=== PATIENT | male | born 1955 | race Caucasian/White ===

== ENCOUNTER → 2017-01-07 | Outpatient (CLI) | payer OTHER ==
[~2017-01-07] VITALS: Ht 188 cm; Wt 63.2 kg
[~2017-01-07] MED LIST: ADULT LOW DOSE81 MG PO; ALLERGY10 M1 PO; ANTIBIOTIC; ASPIRIN325 PO; BENADRYL25 MG PO; COMPOUND CREAM; DEPO-TESTO100 MG/1 M IM; FENTANYL PATCH75 MCG TD; MEDROLDOSEPACK PO; METHADONE HCL 110 M1; METHADONE HCL 110 M1 GT; METHADONE HCL 110 M1 PO; METHADOSE10 M1 PO; MULTIVITAMINS; NEURONTIN 300300 M1 PO; OXYCODONE HCL 55 MG PO; OXYCODONE HCL5 M1 PO; OXYCODONE-ACET1 EACH PO; PAMELOR10 MG PO; PREDNISONE; PROCHAMBER1 EACH MC; PROPRANOLOL 1010 MG PO; PROZAC10 MG PO; RANITIDINE 150150 MG PO; ROXICODONE5 M1 PO; TOPROL XL25 MG PO; VALIUM10 MG PO; VALIUM5 MG PO
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
[2017-01-07 09:35] VITALS: BP 131/85
== END ==
LOC: PAIN 06:40
DX: M54.2 Cervicalgia (principal); G43.909 Migraine, unspecified, not intractable, without status migrainosus; M96.1 Postlaminectomy syndrome, not elsewhere classified; E83.118 Other hemochromatosis; F32.9 Major depressive disorder, single episode, unspecified; F41.9 Anxiety disorder, unspecified; I10 Essential (primary) hypertension; F17.210 Nicotine dependence, cigarettes, uncomplicated

== ENCOUNTER → 2017-02-08 | Outpatient (CLI) | payer OTHER ==
[~2017-02-08] VITALS: Ht 188 cm; Wt 64.9 kg
--- NOTE | ~2017-02-08 | HPC ---
[facility] [address] [place] [address] PAIN MANAGEMENT CONSULTATION Name: CARINA GALVAN Room #: REG SAMIR Anderson.#: [id number] Admission: 02/08/17 Attend Phys: Chandra Shultz DO Discharge: Date of : 59 Report #: [id number] THIS REPORT FOR: //name// CC: Tushar Shultz HISTORY OF PRESENT ILLNESS: The patient is a 61-year-old gentleman, being treated for symptomatic cervical radiculopathy, status post decompressive laminectomy, chronic pain syndrome, requiring complex medication management. He is typically the patient of Dr. Michael Zamorano, urine drug screen at last visit was positive for prescribed medication, as well as an alcohol metabolite. The patient was cautioned about drinking concurrently with robust opioid analgesics. Continues to smoke and is an everyday smoker, states down to 1/2 pack a day. Complains of pain primarily in neck, mid back, and headache. Rates his pain 8 on a 0-10 visual analog scale. PHYSICAL EXAMINATION: Actually fairly unremarkable initially, vital signs are stable. He is fairly cachectic, states he has no appetite. BMI is 18.4 kilograms per meter squared. When I attempted to do a cervical range of motion and upper extremity strength, he exhibited significant pain behaviors, started somewhat of tremors type jerking behavior with his head and neck. Ultimately range of motion is fairly full, well-healed anterior scar is on the neck, compatible with the ACDF. Upper extremity strength is 4/5 and symmetric. Reflexes for the biceps, triceps, and brachioradialis are generally symmetric. We reviewed the fact that opiate medications are being used to provide analgesia adequate to support activities of daily living, not attempting to achieve a specific pain score on the 0-10 Visual Analog Scale. The current opiate medications are providing sufficient analgesia to allow the patient to participate in activities of daily living. The patient is not exhibiting any aberrant behavior suggestive of drug diversion. The patient is not having any adverse reactions to medications. The patient is not suffering from daytime somnolence or mental acuity changes. The patient is managing opiate-induced constipation with appropriate dewb-jce-mtteadb agents and dietary considerations. The patient was counseled on concern for caution with operating a motor vehicle while using opiate medications. A physical exam was performed and the patient's functional status was evaluated. All patients with back pain were advised against the bed rest greater than 4 days and were advised to return to normal activities. Pain score assessment was noted and the treatment plan was reviewed with the patient. All current medications, both prescribed and OTC were reviewed and reconciled on the electronic medical record. Tobacco screening was accomplished and smoking cessation was advised when indicated. BMI was noted and diet/exercise modification was recommended for all patients following outside normal parameters. [address] [address] PAIN MANAGEMENT CONSULTATION Name: CARINA GALVAN Room #: REG CLDarnell Corrales#: [id number] Admission: 02/08/17 Attend Phys: Chandra Shultz DO Discharge: Date of : 59 Report #: [id number] I reviewed with the patient today their responsibilities to safeguard prescription medications, reviewed their responsibility to utilize medications only as prescribed by the physician. They are to seek and receive pain medications only from 1 physician group ( [facility]). They are to use 1 pharmacy and keep the clinic informed if they change pharmacies. Their responsibilities include making followup visits in a timely fashion and to avoid abrupt discontinuation of medication usage. Their responsibilities further include bringing their medications (bottles from the pharmacy with residual pills) to the visit for possible confirmation of pill counts and the patient understands it is their responsibility to submit to random drug screens to ensure both that the medications prescribed are present, and that no other controlled substances are present. All prescriptions provided today were generated electronically. ASSESSMENT: Chronic pain syndrome requiring complex medication management in a 61-year-old gentleman, status post multiple cervical surgeries, chronic pain syndrome requiring complex medication management. Continues to smoke, was counseled regarding the same. BMI is low, was counseled regarding protein supplementation. Chronic constipation, we talked about MiraLax, stool softeners, and fibrous diet with plenty of fluids. RECOMMENDATION: Ultimately, we elected to continue baseline medications unchanged, methadone 10 mg t.i.d. with Percocet 5/325 b.i.d. I have taken the liberty of writing for 3 months of current medication. I did suggest the patient that we will likely get a urine drug screen at next visit, and it should be negative for alcohol metabolites with his current opiate use, equating to roughly 90 mg of morphine via the methadone and 15 mg of morphine via the oxycodone for a total of 105 mEq of morphine daily. <ELECTRONICALLY SIGNED> By: Chandra Shultz DO 02/11/17 0749 [id number] Chandra Shultz DO /nt
[2017-02-08 08:39] VITALS: BP 133/81
== END | disposition home or self-care (01) ==
LOC: PAIN 02-04 07:32
DX: M54.12 Radiculopathy, cervical region (principal); G89.4 Chronic pain syndrome; F17.200 Nicotine dependence, unspecified, uncomplicated

== ENCOUNTER → 2017-05-06 | Outpatient (CLI) | payer OTHER ==
[~2017-05-06] VITALS: Ht 188 cm; Wt 64.0 kg
[2017-05-06 08:32] VITALS: BP 144/88
== END | disposition home or self-care (01) ==
LOC: PAIN 07:15
DX: G89.29 Other chronic pain (principal); Z98.890 Other specified postprocedural states; M54.2 Cervicalgia; F41.9 Anxiety disorder, unspecified; E83.119 Hemochromatosis, unspecified

== ENCOUNTER → 2017-07-22 | Outpatient (CLI) | payer OTHER ==
[~2017-07-22] VITALS: Ht 188 cm; Wt 66.1 kg
[~2017-07-22] MED LIST changes: -ADULT LOW DOSE81 MG PO; +ANESTROZOLE PO; +ASPIRIN EC325 M1 PO; +NEURONTIN100 MG PO
--- NOTE | ~2017-07-22 | HPC ---
[facility] [address] [address] [place] [address] PAIN MANAGEMENT CONSULTATION Name: CARINA GALVAN Room #: REG SAMIR Yuli.#: [id number] Admission: 07/22/17 Attend Phys: Michael Zamorano MD Discharge: Date of : 59 Report #: [id number] THIS REPORT FOR: //name// CC: Tushar Zamorano DATE OF SERVICE: 07/22/2017 Followup visit for chronic intractable pain. HISTORY OF PRESENT ILLNESS: The patient returns to the pain clinic today and his BMI has stabilized at 18.7 today. It was 18.1 at his last visit. He has had a GI workup and I have the results of his initial assessment, but not his EGD and colonoscopy. I have asked for those to be sent to our office by fax. He says that he has been feeling a little bit better, less shaky, but is still anorexic and has ongoing persistent chronic cervical and low back pain. 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 Today his pain is an 8/10. It is worse with activity. He has anxiety, occasionally getting upset and that seems to flare his physical pain as well. We had a talk today about the psychosocial components to pain. He is unable to work. He has on his previous buccal drug screen shown evidence of alcohol. We have talked about avoiding alcohol and he tells me that he only drinks an occasional beer in a social setting or when watching a ballgame. His stools have been loose and white recently. I want him talk to the GI specialist about this. MEDICATIONS: On the electronic medical record are reviewed in detail. For pain, he uses methadone 10-mg tablets b.i.d. down from previous 3 and he is on oxycodone 5/325 b.i.d. as well. Using a ratio of 4:1 for methadone to morphine, his MME (morphine milligram equivalency) is 90, right at the CDC guideline. He also takes testosterone, which is likely low due to his chronic opioid use and he is on multivitamins and metoprolol. PHYSICAL EXAMINATION: GENERAL: He looks a little better today. I think his color is better. His eyes do not look quite so gaunt. VITAL SIGNS: His blood pressure is 144/86, heart rate is 73, respirations are 18, and room air oxygen saturation is 98. His BMI is 18.7. [facility] [address] [place] [address] PAIN MANAGEMENT CONSULTATION Name: CARINA GALVAN Room #: REG CLI [facility]#: [id number] Admission: 07/22/17 Attend Phys: Michael Zamorano MD Discharge: Date of : 59 Report #: [id number] CHEST: Clear to auscultation. CARDIAC: Rhythm is audible and regular without appreciable murmur. ABDOMEN: Sensitive and tender. There is no palpable mass or organomegaly. EXTREMITIES: He has some diffuse hyperalgesia throughout the lower and upper extremities. IMPRESSION: 1. Chronic intractable pain related to spinal stenosis in the cervical region as well as lumbar radiculopathy. 2. Management of high-risk medications. 3. Recent anorexia with weight loss, etiology uncertain. 4. Management of high-risk medications under terms of an opioid agreement. PLAN: I renewed his medications. Reviewed his opioid agreement. Reviewed the CDC guidelines. Talked about the opioid crisis in the [place]. He understands the importance of safeguarding all medications and will be seen back in the clinic as needed in 3 months. This is in terms of our opioid agreement. By: [id number] Michael Zamorano MD /nt
[2017-07-22 10:51] VITALS: BP 144/86
== END | disposition home or self-care (01) ==
LOC: PAIN 06-24 12:51
DX: M48.02 Spinal stenosis, cervical region (principal); M54.16 Radiculopathy, lumbar region; R63.0 Anorexia; F41.8 Other specified anxiety disorders; Z98.890 Other specified postprocedural states; Z79.891 Long term (current) use of opiate analgesic; Z79.82 Long term (current) use of aspirin; Z79.899 Other long term (current) drug therapy

== ENCOUNTER → 2017-10-31 | Outpatient (CLI) | payer OTHER ==
[~2017-10-31] VITALS: Ht 188 cm; Wt 65.8 kg
[~2017-10-31] MED LIST changes: +ERGOCALCIF50000 UNIT PO; +GABAPENTIN 100100 MG PO; +LEXAPRO 10 MG T10 M1 PO; +VITAMIN E1000 UNI2 PO
--- NOTE | ~2017-10-31 | HPC ---
[facility] [address] [place] [address] PAIN MANAGEMENT CONSULTATION Name: CARINA GALVAN Room #: REG SAMIR Justin.#: [id number] Admission: 10/31/17 Attend Phys: Michael Zamorano MD Discharge: Date of : 59 Report #: [id number] THIS REPORT FOR: //name// CC: Tushar Zamorano Followup visit for chronic intractable pain, now with severe pain, right shoulder. The patient presents today in clinic with his . He has been on medications in our clinic under terms of written opioid agreement dating back to 2009. This will be his 8th year in our clinic. He has done well with his medications, has carefully managed them. He has had no misuse, abuse, overdose or other issues. We have had opioid rotation at a time or two and he is currently on methadone and oxycodone. His morphine mg equivalence is right at 90-95. We have, on repeated occasions, discussed the CDC guidelines. Today, his primary complaint is his right shoulder. He injured it with a couple of activities around the house. He scores it as an 8/9 and today, he has marked pain behaviors in the clinic, wincing and grimacing every time he moves the shoulder. Pain has been improved somewhat by medication. He is using an ice pack today in the clinic. The patient saw Dr. Venegas who suggested conservative treatment. He has had wonderful success sending patients to Dr. Blunt who specializes in shoulders and I would like for a second opinion from Dr. Blunt. We gave him the office number to make an appointment today. Medicare PQRS assessment shows that he has generalized osteoarthritis involving the shoulders, bilateral, and also complains of pain at times in his knees. He is instructed to remain active. His BMI is actually up a bit. We were concerned by his weight loss. He has been evaluated by Dr. Laughlin. His BMI is 18.6 up from 18.1. A rare in our clinic, we are encouraging his diet and he should take in more calories and particularly a healthy diet. OBJECTIVE: VITAL SIGNS: Blood pressure 135/94, heart rate 89. Pain intensity 8/10 today, mostly complaining of shoulder pain. He is not a fall risk. He has had some dizziness and needs to be cautious. He is not on blood thinners. He has a history of hypertension treated by Dr. Laughlin. His opioid agreement was first signed in 2009. We had him review it and sign it again in 05/2016. He has completed an opioid risk tool which is 4 which is a moderate risk. He has a functional assessment tool as well and goals have been established to remain active. He is a current everyday smoker and I have counseled him about that again today. [address] [address] PAIN MANAGEMENT CONSULTATION Name: CARINA GALVAN Room #: REG SAMIR Corrales#: [id number] Admission: 10/31/17 Attend Phys: Michael Zamorano MD Discharge: Date of : 59 Report #: [id number] His right shoulder was examined and he has marked pain with abduction. There is tenderness anteriorly in the joint and also laterally. He has pain over the supraspinatus muscle. He has marked reduction of mobility in the cervical spine due to previous surgery. He has a fusion and tenderness across the scar. IMPRESSION: 1. Chronic intractable back pain with multiple spinal surgeries. He has significant cervicalgia with limited range of motion due to cervical fusion causing occipital and migraine headaches. 2. Severe pain, right shoulder secondary to what sounds like a rotator cuff tear and injury. He has had an MRI, but I do not have the results. I have asked for them to be sent to our office. 3. Hemochromatosis. He undergoes phlebotomy with regularity. He has had to miss his last 2 sessions due to pain and illness. 4. Weight loss, which has now stabilized. 5. History of depression and anxiety. 6. Management of high risk medications under terms of written opioid agreement. PLAN: I renewed his pain, methadone 10 mg b.i.d., Percocet 5/325 two tablets daily for breakthrough pain for a total of 90 morphine equivalents per day. Total time with the patient 25 minutes. Followup visit is scheduled for 3 months. <ELECTRONICALLY SIGNED> By: Michael Zamorano MD 12/04/17 1640 [id number] Michael Zamorano MD /nt
[2017-10-31 11:01] VITALS: BP 135/94
== END ==
LOC: PAIN 06:50
DX: M43.22 Fusion of spine, cervical region (principal); M25.511 Pain in right shoulder; E83.119 Hemochromatosis, unspecified; R63.4 Abnormal weight loss; F41.9 Anxiety disorder, unspecified; F32.9 Major depressive disorder, single episode, unspecified; Z79.899 Other long term (current) drug therapy; Z98.890 Other specified postprocedural states

== ENCOUNTER → 2018-01-20 | Outpatient (CLI) | payer OTHER ==
[~2018-01-20] VITALS: Ht 188 cm; Wt 64.4 kg
[~2018-01-20] MED LIST changes: -ERGOCALCIF50000 UNIT PO; -LEXAPRO 10 MG T10 M1 PO; -VITAMIN E1000 UNI2 PO
--- NOTE | ~2018-01-20 | HPC ---
[facility] [address] [place] [address] PAIN MANAGEMENT CONSULTATION Name: CARINA GALVAN Room #: REG Darnell Yuli.#: [id number] Admission: 01/20/18 Attend Phys: Michael Zamorano MD Discharge: Date of : 59 Report #: [id number] THIS REPORT FOR: //name// CC: Tushar Zamorano DATE OF SERVICE: 01/20/2018 Followup visit for chronic cervicalgia. The patient returns to the pain clinic today in followup. He is here today for medication management. He remains on methadone 10 mg twice a day and oxycodone 5/325 b.i.d. His morphine milligram equivalent dose is 90. He continues to complain of pain in his neck and his shoulder. He has seen Dr. Mcmullen who has diagnosed osteoarthritis and rotator cuff injury. He continues to have shaking, which is worsening some. I have asked him to discuss this further with Dr. Laughlin. Although we have not discussed it before, I am concerned as I watch his gait that he may possibly have Parkinson's disease. I referred him to a neurologist as well. Review of PQRS shows that he has ongoing arthritis particularly in the shoulders and in his knees. He is instructed to do his best to remain active, daily exercise. BMI remains low at 18.2 and unchanged. He has an opioid agreement, which has been reviewed and recent drug screen performed one year ago. He is encouraged to remain active. Blood pressure is 153/93, heart rate 80 and respirations 22. IMPRESSION: 1. Chronic intractable pain. He has had eight previous back surgeries. 2. Management of high risk medication. 3. Osteoarthritis. 4. Ongoing tremor, possibly Parkinson's disease? 5. Hemochromatosis. 6. History of depression and anxiety. Follow up in the pain clinic in three months. Medications renewed. A 25-minute followup visit. By: [id number] iMchael Zamorano MD /nt
[2018-01-20 09:56] VITALS: BP 153/93
== END ==
LOC: PAIN 07:01
DX: G89.29 Other chronic pain (principal); M54.2 Cervicalgia; M19.90 Unspecified osteoarthritis, unspecified site; F32.9 Major depressive disorder, single episode, unspecified; F41.9 Anxiety disorder, unspecified; E83.119 Hemochromatosis, unspecified

== ENCOUNTER → 2018-04-28 | Outpatient (CLI) | payer OTHER ==
[~2018-04-28] VITALS: Ht 188 cm; Wt 63.7 kg
[~2018-04-28] MED LIST changes: +LEXAPRO 10 MG T10 M1 PO
--- NOTE | ~2018-04-28 | HPC ---
[facility] [address] [address] [place] [address] PAIN MANAGEMENT CONSULTATION Name: CARINA GALVAN Room #: REG SAMIR Justin.#: [id number] Admission: 04/28/18 Attend Phys: Michael Zamorano MD Discharge: Date of : 59 Report #: [id number] THIS REPORT FOR: //name// CC: Tushar Zamorano DATE OF SERVICE: 04/28/2018 Followup visit for chronic pain, cervicalgia, low back pain and osteoarthritis. The patient is here today with his . I follow him for chronic pain. He has had multiple spinal surgeries including extensive cervical laminectomy. He has chronic daily pain related to his spine and the multiple surgeries, and he also suffers from severe osteoarthritis of the right shoulder. I provided him with medications for a number of years under terms of written opioid agreement. He uses his medications carefully. His initial contract was signed on 07/03/2010. He has received multiple sessions of education regarding use of opioids cautiously and carefully and safeguarding of medications. He is grateful for the relief that he receives from his medication methadone with breakthrough oxycodone, which will be discussed further. He has over the years developed a worsening of her right arm coarse tremor. It is worse after activities. He does not remain idle at home and is oftentimes working on cars and yesterday spent a good portion of the afternoon using a weed whacker around his house. He is suffering the consequences of that activity with increase in pain today, which would be expected. He has seen Dr. José Antonio Blunt for the shoulder, he was diagnosed osteoarthritis and rotator cuff injury, but no surgery has been performed. He has symptoms that may be suggestive of Parkinson disease, although he is likely myelopathic with his previous neck surgery as well. He has some flattening of affect. He has lost some memory and reports that he is not as sharp as he used to be. He has a somewhat shuffling gait in addition to the tremor. I have spoken with Dr. Laughlin today, and we will send with Dr. Ridley in consultation. The possibility of Parkinson disease or a central degenerative condition is certainly in the differential. MEDICATIONS: Reviewed and reconciled. For pain, I provided him with methadone 10 mg twice a day and oxycodone 5/325 twice a day. This correlates to an MME of around 100 due to the high morphine equivalency of methadone, which is 4 to 1. He tolerates the medicine well without significant side effects and is grateful for the pain relief. PQRS is reviewed. He is not a fall risk, but he does have a shuffling gait. He has some loss of proprioception. He smokes a pack a day and was counseled. He [facility] [address] [place] [address] PAIN MANAGEMENT CONSULTATION Name: MANDYCARINA Room #: REG SAMIR Corrales#: [id number] Admission: 04/28/18 Attend Phys: Michael Zamorano MD Discharge: Date of : 59 Report #: [id number] drinks alcohol as well, usually. 1 beer per day, down from heavier consumption in the past. He has completed the risk assessment tool for his opioid use and is at low risk for addiction with a score of 1. Functional assessment tool shows that he manages his pain fairly well with a score of 38/70. He is treated for hypertension. PHYSICAL EXAMINATION: VITAL SIGNS: His blood pressure is 109/62, heart rate is 108, respirations 14. GENERAL: Affect is somewhat flat. His voice is hesitant. HEENT: Reveals pupils were round, reactive to light. EOMs are intact. Mucous membranes are moist. NECK: Rigid with limited range of motion in all planes. There is a scar in the posterior cervical spine from previous laminectomy. CHEST: Clear. CARDIAC: Rhythm was regular and rapid. ABDOMEN: Soft. Scars in the back are noted from previous surgery. EXTREMITIES: Reveal tremor of the right upper extremity. Left is fairly stable. Gait is somewhat shuffling. IMPRESSION: 1. Chronic intractable pain with multiple spinal surgeries. 2. Management of high risk medication. 3. Osteoarthritis, particularly right shoulder. 4. Ongoing tremor. 5. History of hemochromatosis and he continues to receive phlebotomies once or twice a month. 6. History of depression and anxiety. PLAN: I will renew his pain medications, which are so helpful in maintaining for daily function. Safeguarding medications discussed. No side effects need to be addressed at this time. Follow up with Dr. Laughlin within the next 1-2 months, and I have suggested that he talk to Dr. Laughlin about seeing Dr. Ridley. <ELECTRONICALLY SIGNED> By: Michael Zamorano MD 04/30/18 1622 [id number] Michael Zamorano MD /nt
[2018-04-28 10:01] VITALS: BP 109/62
== END ==
LOC: PAIN 06:23
DX: M19.011 Primary osteoarthritis, right shoulder (principal); G89.4 Chronic pain syndrome; M54.5 Low back pain; M54.2 Cervicalgia

== ENCOUNTER → 2018-07-21 | Outpatient (CLI) | payer OTHER ==
[~2018-07-21] VITALS: Ht 188 cm; Wt 67.0 kg
[~2018-07-21] MED LIST changes: +ERGOCALCIF50000 UNIT PO; +VITAMIN E1000 UNI2 PO
[2018-07-21 09:01] VITALS: BP 132/83
== END ==
LOC: PAIN 07:04
DX: M54.5 Low back pain (principal); M54.2 Cervicalgia; G89.29 Other chronic pain; M79.601 Pain in right arm; Z79.899 Other long term (current) drug therapy

== ENCOUNTER → 2018-09-22 | Outpatient (CLI) | payer OTHER ==
[~2018-09-22] VITALS: Ht 188 cm; Wt 69.0 kg
[~2018-09-22] MED LIST changes: +METOPROLOL TART25 MG PO
--- NOTE | ~2018-09-22 | HPC ---
[facility] [address] [place] [address] PAIN MANAGEMENT CONSULTATION Name: CARINA GALVAN Room #: REG [facility].#: [id number] Admission: 09/22/18 Attend Phys: Michael Zamorano MD Discharge: Date of : 59 Report #: [id number] THIS REPORT FOR: //name// CC: Tushar Laughlin DO Michael Zamorano DATE OF SERVICE: 09/22/2018 Followup visit for chronic pain. The patient returns to pain clinic today and reports that he is doing poorly. He describes his pain as increasing in severity and severe at a level of 9/10. He is lightheaded at times and dizzy. His weight remains low and his BMI under 20. I should note that he has gained a small amount of weight since previously seen, so his weight loss has not continued. He reports to me that his pain is severe every day, worse generally when he first gets up. He is stiff and tight and it requires a period of time for him to loosen. He has pain in multiple locations including his neck where he has had an extensive cervical laminectomy for decompression, pain that radiates into his right arm along with a fine tremor that he has had for some time. He has pain across his low back and stiffness and pain in both legs. He has spasticity related I believe to spinal cord injuries and myelopathy. I have been concerned that Parkinson's disease or another neurologic disorder is in his differential diagnosis. He has the fine tremor of the hand. He has some flattening of his affect. He has a shuffling spastic gait. I have asked repeatedly for a neurologic consultation, although he tells me that he is not sure that he has done that. I had discussed with Dr. Laughlin a referral and I thought that it had occurred with Dr. Laughlin. No records were sent to my office. All medications are currently reviewed and reconciled. He is on an opioid agreement. He reports without medication, he would not be able to function or get out of bed. The opioids do provide substantial pain relief for him despite his high pain score. Without them, he feels he would be immobile even for simple daily activities of living. All medications were reviewed and reconciled. He has been given testosterone replacement due to low levels, which may in part be contributed to by his use of opioid medications: He is on the antidepressant, Lexapro, metoprolol, vitamin E. PQRS REVIEW AND PHYSICAL EXAMINATION: He has diffuse generalized osteoarthritis involving shoulders, hips, knees and joints of his hands. His BMI 19.5, [address] [address] PAIN MANAGEMENT CONSULTATION Name: CARINA GALVAN Room #: REG [facility]#: [id number] Admission: 09/22/18 Attend Phys: Michael Zamorano MD Discharge: Date of : 59 Report #: [id number] actually an increase. Dietary issues discussed. Vital signs: Blood pressure 135/85 and heart rate of 84. We did check him for orthostatic changes and they were fairly dramatic. Supine blood pressure was 179/85, heart rate 76, standing blood pressure dropped over 50 points to 123/81, heart rate 83 and he was symptomatic. He scores his pain intensity is a 9. His gait is markedly stiff, shuffling and spastic. He is a fall risk. He is on no blood thinners and is on an opioid agreement signed last in 2015. He is considered low risk by the opioid risk tool. Prescription drug monitoring program information reviewed with the [facility] and there are no unexpected entries. IMPRESSION AND PLAN: 1. Chronic intractable spinal pain, cervicalgia, post-laminectomy syndrome. Osteoarthritis. Evidence of myelopathy and spastic gait. 2. Movement disorder, possibly Parkinson's disease? I would like him to see a neurologist and discuss further with Dr. Laughlin. 3. Management of high-risk medications under terms of written opioid agreement. 4. Discussed the importance of safeguarding all medications, which he will do. His medications were renewed under terms of our written agreement. I will see him back in the pain clinic in 2 months. No injections are indicated. By: [id number] Michael Zamorano MD /nt
[2018-09-22 09:01] VITALS: BP 135/85
[2018-09-22 09:23] VITALS: BP 179/85
[2018-09-22 09:24] VITALS: BP 123/81
== END ==
LOC: PAIN 00:33
DX: M54.2 Cervicalgia (principal); G89.4 Chronic pain syndrome; M19.90 Unspecified osteoarthritis, unspecified site; M96.1 Postlaminectomy syndrome, not elsewhere classified; G25.9 Extrapyramidal and movement disorder, unspecified; Z79.899 Other long term (current) drug therapy; Z79.891 Long term (current) use of opiate analgesic

== ENCOUNTER → 2018-11-20 | Outpatient (CLI) | payer OTHER ==
[~2018-11-20] VITALS: Ht 188 cm; Wt 71.7 kg
[2018-11-20 10:55] VITALS: BP 157/96
--- NOTE | 2018-11-20 11:02 | NUR ---
Pain Clinic Assessment: 1. History of Osteoarthritis: GENERALIZED History of Rheumatoid Arthritis: Not Applicable 2. Height: 6 ft. 2 in. 188.0 cm. Weight: 158.0 lb. oz. 71.668 kg. Patient's BMI: 20.3 3. Vital Signs: BP: 157/96 Pulse: 76 Resp: 16 Temp: 02 Sat: 96 ECG Mon: 4. Pain Intensity: 10 5. Fall Risk: Dizziness: N Needs help standing or walking: N Fallen in the last 3 months: Y Fall risk comments: 6. Patient on Blood Thinner: None 7. History of Hypertension: Y 8. Opioid Therapy greater than 6 weeks: Y Opiate Contract Signed: 05/21/16 9. Risk Assessment Tool Provided: 1-low risk 10. Functional Assessment Tool: 11. Recreational Drug Use: Never Drug Type: Tobacco Use: Current Every Day Smoker Tobacco Type: Amount or Packs/day: How Many Years: Alcohol Use: Yes Frequency: Daily Quant: 1 BEER
--- NOTE | 2018-11-21 08:27 | HPC ---
[facility] [place] [address] PAIN MANAGEMENT CONSULTATION Name: CARINA GALVAN Room #: REG [facility]#: [id number] Admission: 11/20/18 Attend Phys: Ann Nazario Discharge: Date of : 59 Report #: [id number] THIS REPORT FOR: //name// CC: Ann Laughlin DATE OF SERVICE: 11/20/2018 CHIEF COMPLAINT: Chronic pain, recent fall. HISTORY OF PRESENT ILLNESS: The patient returns to the pain clinic today for refill of his medications, but he tells us that he fell about 5 days ago from the ice. He tells us that he remembers falling, does not remember actually hitting the ground or what he hit during his fall, but he remembers that he woke up briefly after the fall with his dog beside him. He had a loss of consciousness. He tells us today that his right side of his face from his nose towards his cheek are numb. His right arm has increased his pain and numbness in his hand. He tells me that he hit his head, hand, chest. He had sore areas on his head and his neck and his walk is not his normal gait today. He rates his pain score as 10/10. He did not go to the Emergency Room. He stayed at home and this is the first time he has seen anyone since his fall. He also complains of low back pain and some pain in his left forearm. ALLERGIES: CHOCOLATE, DARVOCET, PENICILLIN, MORPHINE, MILK and GABAPENTIN. CURRENT LIST OF MEDICATIONS: Oxycodone 5/325 b.i.d., methadone 10 mg tablets b.i.d., metoprolol 25 mg daily, vitamin E 1000 units daily, Drisdol weekly, Lexapro 20 mg daily, Toprol-XL 25 mg daily, aspirin 325 mg daily, testosterone injections every 2 weeks and a multivitamin. PQRS: 1. The patient has osteoarthritis in his neck and back and generalized diffuse osteoarthritis also in his hips, shoulders, knees and other joints of his hands. He denies rheumatoid arthritis. 2. Height is 6 feet 2 inches, weight is 158. BMI is 20. This is an increase by 6 pounds since his last visit. 3. Vital signs: 157/96, pulse is 76, respirations 16, oxygen sat is 96. 4. Pain score is 10/10. 5. Fall risk. Denies dizziness. Does not need help walking or standing. He has not fallen in the last 3 months. 6. He takes a full baby aspirin every day. Does have a history of hypertension. 7. Opioid therapy greater than 6 weeks, therefore, an opioid pain contract is on the chart. 8. Risk assessment tool is low. Functional assessment 38/70. 9. Recreational drug use he denies. He is [place] current [place] [address] PAIN MANAGEMENT CONSULTATION Name: CARINA GALVAN Room #: REG [facility]#: [id number] Admission: 11/20/18 Attend Phys: Ann Nazario Discharge: Date of : 59 Report #: [id number] every day and he occasionally drinks a beer daily. We did check the prescription monitoring system. The patient is filling his medications appropriately in a timely fashion. He tells me he safeguards his medications and there is a drug screen on the chart. PHYSICAL EXAMINATION: GENERAL: This is a well-developed, anorexic 63-year-old gentleman, appears his stated age. He is alert and orientated. His speech is fluent. HEENT: Normocephalic, atraumatic. Extraocular eye muscles are intact. Mucous membranes are moist. He does have some scratches on his chin and the side of his right face due to his recent fall. NECK: Reveals limited range of motion in all planes. There is a scar in the anterior cervical spine and posterior spine from previous laminectomies. He does have abrasion on his back of his neck from his recent fall. MUSCULOSKELETAL: The patient has abrasions on his bilateral elbows from his recent fall, some bruising noted on his left arm. Strength is diminished 3/5 on his left arm and 4/5 on his right arm. Lower extremity muscle strength is diminished 3/5 on his left leg and 4/5 on his right leg. The patient has shuffling antalgic gait, numbness and tingling noted on the left arm that involves his entire hand. IMPRESSION: 1. Chronic intractable pain with multiple spinal surgeries. 2. Management of high risk medication. 3. Osteoarthritis, generalized. 4. Ongoing tremors. 5. History of hemochromatosis. Continues to have phlebotomy monthly. 6. History of depression and anxiety. 7. Multiple contusions and loss of consciousness briefly related to recent fall. We reviewed the fact that opiate medications are being used to provide analgesia adequate to support activities of daily living, not attempting to achieve a specific pain score on the 0-10 Visual Analog Scale. The current opiate medications are providing sufficient analgesia to allow the patient to participate in activities of daily living. The patient is not exhibiting any aberrant behavior suggestive of drug diversion. The patient is not having any adverse reactions to medications. The patient is not suffering from daytime somnolence or mental acuity changes. The patient is managing opiate-induced constipation with appropriate qacf-uzt-xmmhxcu agents and dietary considerations. The patient was counseled on concern for caution with operating a motor vehicle while using opiate medications. A physical exam was performed and the patient's functional status was evaluated. All patients with back pain were advised against the bed rest greater than 4 [facility] [address] [place] [address] PAIN MANAGEMENT CONSULTATION Name: CARINA GALVAN Room #: REG [facility]..#: [id number] Admission: 11/20/18 Attend Phys: Ann Nazario Discharge: Date of : 59 Report #: [id number] days and were advised to return to normal activities. Pain score assessment was noted and the treatment plan was reviewed with the patient. All current medications, both prescribed and OTC were reviewed and reconciled on the electronic medical record. Tobacco screening was accomplished and smoking cessation was advised when indicated. BMI was noted and diet/exercise modification was recommended for all patients following outside normal parameters. I reviewed with the patient today their responsibilities to safeguard prescription medications, reviewed their responsibility to utilize medications only as prescribed by the physician. They are to seek and receive pain medications only from 1 physician group ([facility]). They are to use 1 pharmacy and keep the clinic informed if they change pharmacies. Their responsibilities include making followup visits in a timely fashion and to avoid abrupt discontinuation of medication usage. Their responsibilities further include bringing their medications (bottles from the pharmacy with residual pills) to the visit for possible confirmation of pill counts and the patient understands it is their responsibility to submit to random drug screens to ensure both that the medications prescribed are present, and that no other controlled substances are present. All prescriptions provided today were generated electronically. PLAN: 1. Due to the patient's objective and subjective findings on his physical exam today, I think it is relevant to have an x-ray of his head CT and his neck CT done today to rule out any bleeds that may have occurred from his fall or any further damage to his neck since he has had multiple surgeries with significant hardware placed. Due to his signs and symptoms of numbness and tingling in his arm and his gait has worsened, we will order those today and agreement with Dr. Michael Zamorano who actually saw the patient too and examined him. The patient is agreeable with this. He understands that the patient has gone to the Emergency Room sooner to be checked since he did hit his head. 2. Results from CAT scan of his head showed mild atrophy and microvascular changes, no acute hemorrhage noted and his cervical spine showed no cervical fracture detected, just postoperative degenerative changes from his multiple surgeries. He informed the patient of these, but if his symptoms continue to get worse he is instructed to go to the Emergency Room. The patient verbalizes understanding. 3. Scripts given today for methadone 10 mg 3 times b.i.d. to be released today in 4 weeks and oxycodone 5/325, #60 to be released today in 4 weeks. 4. The patient will be seen in followup for medication management in 2 months unless other symptoms arise. 5. The patient did tell me that he did follow up with Dr. Sanchez, a neurologist for his Parkinson-like tremors. Dr. Sanchez did not believe that he has Parkinson's. He did order the patient to start taking some vitamins that the patient has started and will follow up with him in the next month. [facility] [address] [place] [address] PAIN MANAGEMENT CONSULTATION Name: CARINA GALVAN Room #: REG [facility]#: [id number] Admission: 11/20/18 Attend Phys: Ann Nazario Discharge: Date of : 59 Report #: [id number] The patient was seen in collaboration with Dr. Michael Zamorano today and Dr Zamorano saw pt today. <ELECTRONICALLY SIGNED> By: Ann Nazario 11/21/18 [id number] Ann Nazario /nt
== END ==
LOC: PAIN 07:03
DX: S06.0X9A Concussion with loss of consciousness of unspecified duration, initial encounter (principal); G31.89 Other specified degenerative diseases of nervous system; M43.22 Fusion of spine, cervical region; M19.90 Unspecified osteoarthritis, unspecified site; F41.9 Anxiety disorder, unspecified; Z91.018 Allergy to other foods; Z88.8 Allergy status to other drugs, medicaments and biological substances; Z88.5 Allergy status to narcotic agent; Z88.0 Allergy status to penicillin; Z79.899 Other long term (current) drug therapy; W00.0XXA Fall on same level due to ice and snow, initial encounter; Y93.89 Activity, other specified; Y92.89 Other specified places as the place of occurrence of the external cause; Y99.8 Other external cause status

== ENCOUNTER → 2019-01-19 | Outpatient (CLI) | payer OTHER ==
[~2019-01-19] VITALS: Ht 188 cm; Wt 72.2 kg
[~2019-01-19] MED LIST changes: +LIORESAL 10 MG10 MG PO
[2019-01-19 09:15] VITALS: BP 159/99
--- NOTE | 2019-01-19 09:29 | NUR ---
Pain Clinic Assessment: 1. History of Osteoarthritis: GENERALIZED History of Rheumatoid Arthritis: Not Applicable 2. Height: 6 ft. 2 in. 188.0 cm. Weight: 159.2 lb. oz. 72.213 kg. Patient's BMI: 20.4 3. Vital Signs: BP: 159/99 Pulse: 71 Resp: 14 Temp: 02 Sat: 98 ECG Mon: 4. Pain Intensity: 9 5. Fall Risk: Dizziness: Y Needs help standing or walking: N Fallen in the last 3 months: Y Fall risk comments: 6. Patient on Blood Thinner: None 7. History of Hypertension: Y 8. Opioid Therapy greater than 6 weeks: Y Opiate Contract Signed: 05/21/16 9. Risk Assessment Tool Provided: 1-low risk 10. Functional Assessment Tool: 11. Recreational Drug Use: Never Drug Type: Tobacco Use: Current Every Day Smoker Tobacco Type: Cigarettes Amount or Packs/day: 3/4 How Many Years: 40 Alcohol Use: Yes Frequency: Daily Quant: 1/beer/day
--- NOTE | 2019-01-20 09:51 | HPC ---
[facility] [address] [address] PAIN MANAGEMENT CONSULTATION Name: CARINA GALVAN Room #: REG [facility]#: [id number] Admission: 01/19/19 ������������������ Attend Phys: Ann Nazario Discharge: ������������������ Date of : 59 Report #: [id number] THIS REPORT FOR: //name// CC: Ann Laughlin DATE OF SERVICE: 01/19/2019 CHIEF COMPLAINT: Chronic pain, cervical radiculopathy. HISTORY OF PRESENT ILLNESS: The patient returns to the pain clinic today for refill of his medication. He tells me that he is doing much better since his fall in November. He tells me that today he has right arm pain and right leg pain. He tells me that his leg is tingly and itchy feeling as well as his arm. He tells me there has been ongoing neck pain and rating it 9/10. He tells me it seems to be getting worse in his right arm. He has pain in his right forearm. He is also having spasms. He said that they come on quite quickly and will last for a while and was wondering if he was able to get some kind of medicine for a muscle relaxant. He said he has not had a muscle relaxant for years and unsure of what would be helpful. He just does not want to be sleepy from the medicine if that is possible. He tells me that he feels like he is less shaky and less tremorous since some medicines that a neurologist had put him on. He has been taking them for about 2 months now and feels that they have been very helpful. He denies any constipation and the patient has actually gained a few pounds since the last time we saw him. He is about at 160, which is close to his normal weight, the patient feels like. ALLERGIES: CHOCOLATE, DARVOCET, PENICILLIN, MORPHINE, MILK AND GABAPENTIN. MEDICATIONS: Oxycodone 5/325 b.i.d., methadone 10 mg b.i.d., vitamin E, Drisdol, Lexapro, metoprolol, aspirin, Depo testosterone, multivitamin. PQRS: 1. He has osteoarthritis in his neck and back as well as his joints of hips, shoulders, knees. He denies any rheumatoid arthritis. 2. Height is 6 feet 2 inches, weight is 159, BMI is 20. 3. Vital Signs: Blood pressure 159/99, pulse is 71, respirations 14, oxygen sat is 98. 4. Pain score is 9/10. 5. Complains of slight dizziness, does not need help walking or standing; has fallen in the last 3 months, but not since last visit. 6. The patient is not on any blood thinners. He does have medicine for hypertension. 7. Opioid therapy is greater than 6 weeks; therefore, an opioid signed contract is on the chart. 8. His risk assessment is low. His functional assessment 38/70. [place] [address] PAIN MANAGEMENT CONSULTATION Name: CARINA GALVAN Room #: REG [facility]#: [id number] Admission: 01/19/19 ������������������ Attend Phys: Ann Nazario Discharge: ������������������ Date of : 59 Report #: [id number] 9. He denies any recreational drug use. He does smoke about 3/4 of a pack a day of cigarettes and he does occasionally have a beer each day. 10. We did check the prescription monitoring system. The patient is filling it appropriately with his medication is due to be filled today. There is a recent drug screen on the chart. We will check one in his next medication visit. PHYSICAL EXAMINATION: GENERAL: This is a well-developed, anorexic 63-year-old gentleman who appears his stated age. He is alert and orientated. HEENT: Normocephalic, atraumatic. Extraocular eye muscles are intact. Mucous membranes are moist. NECK: Reveals limited range of motion in all planes. He has anterior cervical spine scar and a posterior spine scar from previous laminectomies. He complains of pain in his neck today that radiates into his right arm. MUSCULOSKELETAL: The patient complains of right arm tingly. He has diminished strength in his right arm judging 4/5 in muscle strength on his right compared to his left 5/5. The patient also does complain of some low back pain and right leg tingly that radiates into his calf. IMPRESSION: 1. Chronic intractable pain with multiple spinal surgeries. 2. Management of high risk medications: 3. Osteoarthritis, generalized multiple joints. 4. Ongoing tremors. 5. History of hemochromatosis requires phlebotomy monthly. 6. History of depression and anxiety. 7. Cervical radiculopathy. 8. Lumbar radiculopathy. We reviewed the fact that opiate medications are being used to provide analgesia adequate to support activities of daily living, not attempting to achieve a specific pain score on the 0-10 Visual Analog Scale. The current opiate medications are providing sufficient analgesia to allow the patient to participate in activities of daily living. The patient is not exhibiting any aberrant behavior suggestive of drug diversion. The patient is not having any adverse reactions to medications. The patient is not suffering from daytime somnolence or mental acuity changes. The patient is managing opiate-induced constipation with appropriate yagd-vyq-quylpod agents and dietary considerations. The patient was counseled on concern for caution with operating a motor vehicle while using opiate medications. A physical exam was performed and the patient's functional status was evaluated. All patients with back pain were advised against the bed rest greater than 4 days and were advised to return to normal activities. Pain score assessment was noted and the treatment plan was reviewed with the patient. All current medications, both prescribed and OTC were reviewed and reconciled on the [facility] [address] [place] [address] PAIN MANAGEMENT CONSULTATION Name: CARINA GALVAN Room #: REG [facility]#: [id number] Admission: 01/19/19 ������������������ Attend Phys: Ann Nazario Discharge: ������������������ Date of : 59 Report #: [id number] electronic medical record. Tobacco screening was accomplished and smoking cessation was advised when indicated. BMI was noted and diet/exercise modification was recommended for all patients following outside normal parameters. I reviewed with the patient today their responsibilities to safeguard prescription medications, reviewed their responsibility to utilize medications only as prescribed by the physician. They are to seek and receive pain medications only from 1 physician group ( [facility]). They are to use 1 pharmacy and keep the clinic informed if they change pharmacies. Their responsibilities include making followup visits in a timely fashion and to avoid abrupt discontinuation of medication usage. Their responsibilities further include bringing their medications (bottles from the pharmacy with residual pills) to the visit for possible confirmation of pill counts and the patient understands it is their responsibility to submit to random drug screens to ensure both that the medications prescribed are present, and that no other controlled substances are present. All prescriptions provided today were generated electronically. PLAN: 1. We discussed treatment options with the patient today. The patient was wondering if a muscle relaxant might be helpful for him. He does not want to have something that causes sleepiness. We will do a trial of baclofen 10 mg tablets 1 b.i.d., #30 pills were given for a trial to see if this is helpful with his muscle spasms regarding his neck and back. 2. Scripts given today for his methadone 10 mg b.i.d. #60 and oxycodone 5/325 #60 medicines for today and 4-week releases. This places the patient morphine mEq under 90 at 75. Therefore, he will be seen for medications again in 2 months. 3. We discussed at length his cervical radiculopathy. He has pain and numbness radiating down his right arm. He has had multiple neck surgeries and fusions. He is fused from C4-C7. I did discuss with Dr. Zamorano briefly if he thinks an epidural may be helpful. Dr. Zamorano thought that might be beneficial. He would need to see the patient and examine him and determine if he is able to perform an epidural due to his previous fusions. The patient has significant hardware in there. We do not have a recent MRI, the last one was dated from 2007, but we have his CAT scan from his recent fall of his neck. We are able to seek authorization for injections on the same day as his appointment. The patient is agreeable with this plan of care since his right arm pain and numbness continues to increase. 4. The patient seen in collaboration today with Dr. Michael Zamorano. ��������������������������������������������� <ELECTRONICALLY SIGNED> ���������������������������������������� By: Ann Nazario ��������������������������������������������� 01/20/19 [id number] Ann Nazario /smitha
== END ==
LOC: PAIN 06:55
DX: M54.12 Radiculopathy, cervical region (principal); M54.16 Radiculopathy, lumbar region; G89.29 Other chronic pain; M19.90 Unspecified osteoarthritis, unspecified site; F41.9 Anxiety disorder, unspecified; F32.9 Major depressive disorder, single episode, unspecified; Z79.899 Other long term (current) drug therapy; Z88.8 Allergy status to other drugs, medicaments and biological substances; Z88.0 Allergy status to penicillin; Z88.5 Allergy status to narcotic agent

== ENCOUNTER → 2019-02-09 | Outpatient (CLI) | payer OTHER ==
[~2019-02-09] VITALS: Ht 188 cm; Wt 72.8 kg
--- NOTE | ~2019-02-09 | HPC ---
[facility] [address] [place] [address] PAIN MANAGEMENT CONSULTATION Name: CARINA GALVAN Room #: REG [facility].#: [id number] Admission: 02/09/19 ������������������ Attend Phys: Michael Zamorano MD Discharge: ������������������ Date of : 59 Report #: [id number] THIS REPORT FOR: //name// CC: Tushar Zamorano DATE OF SERVICE: 02/09/2019 CHIEF COMPLAINT: Followup visit for chronic cervicalgia with radiculopathy. The patient is here today in followup. He is on medication management for chronic intractable cervical pain. He has had an extensive lower anterior cervical diskectomy and fusion as well as a posterior laminectomy at his C2-C3 level. Surprised and disappointed to note that the radiologist, Dr. Nicole, did not even note his posterior laminectomy in her report. I have reviewed the x-rays. There are no fractures, however, the vertebral heights are maintained which was one of the issues we had looked for after his most recent episode of pain. I am not sure we will get adequate pictures, but because of his hyperreflexia, I have decided that we will go ahead and order an MRI of the cervical spine and I want him to see Dr. Kelly. Today, he scores his pain as an 8/10. Continues to have a tremor in the right arm. Pain radiates into his right arm and right shoulder in a radicular distribution consistent with C6-C7 as well as some C7-T1. He is having difficulty with driving a car and other day-to-day activities. He is grateful for his pain medication, which allows him to be more functional throughout the day and he denies significant side effects. Constipation has been a problem in the past, but has been managing it with softeners and laxatives. All medications reviewed and reconciled. He is on an opioid agreement, receives methadone 10 mg twice a day and oxycodone 5/325 also twice a day for breakthrough pain. He uses baclofen for muscle spasm and spasticity, takes Lexapro for depression and anxiety. All other medications are confirmed. He has metoprolol for hypertension and is not on a blood thinner. He continues to smoke 3/4 of a pack a day and was counseled. He was given information to continue to focus on stopping that dangerous habit. He drinks alcohol, but has markedly limited his consumption to 1 beer or alcoholic beverage per day. He continues to do some work around the house including mowing the yard and enjoys working on a truck, but finds it more and more difficult. He often awakens at night due to his pain and has difficulty staying asleep, mostly pain related not due to rumination. [facility] [address] [place] [address] PAIN MANAGEMENT CONSULTATION Name: ATTILAKIMBERLYCARINA Room #: REG SAMIR Corrales#: [id number] Admission: 02/09/19 ������������������ Attend Phys: Michael Zamorano MD Discharge: ������������������ Date of : 59 Report #: [id number] He has completed an opioid risk tool and has scored 1, which is considered low risk. He has signed an opioid agreement and is considered to be at low risk for issues. We have followed his use of medication on the prescription drug monitoring program and there are no unexpected entries. IM is only provided. PHYSICAL EXAMINATION: GENERAL: He is a pleasant gentleman. He moves rigidly and with very stiff movements. He cannot turn his neck [id number]. VITAL SIGNS: His blood pressure is 146/93, heart rate 71, respirations 20. BMI is 20.6. CHEST: Clear. CARDIAC: Rhythm is regular. 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 Some biceps weakness also noted on the right in comparison to the left. Sensation is diminished throughout the shoulder in the C6-C7 distribution and he has some numbness broadly throughout the right hand. Deep tendon reflexes are brisk at biceps, triceps and brachioradialis. He is hyperreflexic, bordering on clonus in lower extremities. IMPRESSION: 1. Chronic cervicalgia with radiculopathy. He is hyperreflexic and there is some concern about spinal cord compression. 2. History of persistent ongoing tremor, undiagnosed. 3. Osteoarthritis, multiple joints including hips, knees and shoulders. 4. Hemochromatosis requiring phlebotomy. 5. History of depression and anxiety. 6. History of lumbar radiculopathy. RECOMMENDATION: I would like to consider an epidural injection, but before I would do so, I am going to get an MRI. I have also referred him to Dr. Kelly after the MRI and wanted to evaluate the MRI to make sure that he is not becoming tighter with more significant risk of myelopathy. Followup visit planned after the MRI. Orders provided. ��������������������������������������������� ���������������������������������������� By: ��������������������������������������������� 1212 [id number] Michael Zamorano MD /nt
[2019-02-09 09:40] VITALS: BP 146/93
--- NOTE | 2019-02-09 09:50 | NUR ---
Pain Clinic Assessment: 1. History of Osteoarthritis: GENERALIZED History of Rheumatoid Arthritis: Not Applicable 2. Height: 6 ft. 2 in. 188.0 cm. Weight: 160.6 lb. oz. 72.848 kg. Patient's BMI: 20.6 3. Vital Signs: BP: 146/93 Pulse: 71 Resp: 20 Temp: 02 Sat: 98 ECG Mon: 4. Pain Intensity: 8 5. Fall Risk: Dizziness: Y Needs help standing or walking: N Fallen in the last 3 months: N Fall risk comments: 6. Patient on Blood Thinner: None 7. History of Hypertension: Y 8. Opioid Therapy greater than 6 weeks: Y Opiate Contract Signed: 05/21/16 9. Risk Assessment Tool Provided: 1-low risk 10. Functional Assessment Tool: 11. Recreational Drug Use: Never Drug Type: Tobacco Use: Current Every Day Smoker Tobacco Type: Cigarettes Amount or Packs/day: 3/4 PACK How Many Years: Alcohol Use: Yes Frequency: Daily Quant: 1
== END ==
LOC: PAIN 06:52
DX: G89.29 Other chronic pain (principal); M54.12 Radiculopathy, cervical region; M54.16 Radiculopathy, lumbar region; M17.0 Bilateral primary osteoarthritis of knee; M16.0 Bilateral primary osteoarthritis of hip; M19.011 Primary osteoarthritis, right shoulder; M19.012 Primary osteoarthritis, left shoulder; F32.9 Major depressive disorder, single episode, unspecified; F41.9 Anxiety disorder, unspecified; F17.210 Nicotine dependence, cigarettes, uncomplicated; Z79.891 Long term (current) use of opiate analgesic; Z72.89 Other problems related to lifestyle

== ENCOUNTER → 2019-02-13 | Outpatient (CLI) | payer OTHER | LOC: MRI 10:23 | DX: M50.11 Cervical disc disorder with radiculopathy, high cervical region (principal); Z98.890 Other specified postprocedural states ==

== ENCOUNTER → 2019-03-05 | Outpatient (CLI) | payer OTHER ==
[~2019-03-05] VITALS: Ht 188 cm; Wt 72.4 kg
[2019-03-05 10:50] VITALS: BP 161/94
--- NOTE | 2019-03-05 11:10 | NUR ---
Pain Clinic Assessment: 1. History of Osteoarthritis: GENERALIZED History of Rheumatoid Arthritis: Not Applicable 2. Height: 6 ft. 2 in. 188.0 cm. Weight: 159.6 lb. oz. 72.394 kg. Patient's BMI: 20.5 3. Vital Signs: BP: 161/94 Pulse: 70 Resp: 16 Temp: 02 Sat: 97 ECG Mon: 4. Pain Intensity: 10 5. Fall Risk: Dizziness: Y Needs help standing or walking: N Fallen in the last 3 months: N Fall risk comments: 6. Patient on Blood Thinner: None 7. History of Hypertension: Y 8. Opioid Therapy greater than 6 weeks: Y Opiate Contract Signed: 05/21/16 9. Risk Assessment Tool Provided: 1-low risk 10. Functional Assessment Tool: 11. Recreational Drug Use: Never Drug Type: Tobacco Use: Current Every Day Smoker Tobacco Type: Cigarettes Amount or Packs/day: 3/4 PACK How Many Years: 48 Alcohol Use: Yes Frequency: Daily Quant: 6
--- NOTE | 2019-03-09 18:13 | HPC ---
[facility] [address] [place] [address] PAIN MANAGEMENT CONSULTATION Name: CARINA GALVAN Room #: REG Darnell Justin.#: [id number] Admission: 03/05/19 ������������������ Attend Phys: Michael Zamorano MD Discharge: ������������������ Date of : 59 Report #: [id number] THIS REPORT FOR: //name// CC: Tushar Laughlin DO Michael Zamorano DATE OF SERVICE: 03/05/2019 Followup visit to review MRI of cervical spine for severe cervicalgia with radiculopathy. The patient returns to pain clinic today. He continues to complain of pain on a daily basis at a 10/10. He also has a significant movement disorder. He twitches throughout his visit today and has ongoing tremor in his left upper extremity. We provide him with medication which allows him some benefit and allows him to function at least well enough to provide for his own daily care and enjoy some of his daily activities. He is, however, not doing as well as I would like. He may be a candidate for cervical epidural. After reviewing his MRI of the cervical spine, I could probably inject him below the level of his surgeries. Whether or not this would provide relief is uncertain. We would need to go down below C7 to possibly C7-T1. He has an interbody fusion at C4-C5, C5-C6 and C6-C7. There would be some risk with the epidural injection. We talked about continuing his medications as ordered. He is taking methadone 10 mg twice a day and oxycodone 5/325 twice a day. This has been of good benefit to him, the neuropathic benefits of methadone established. He has had no significant side effects other than constipation, which have been managed. He is on testosterone replacement therapy. All medications reviewed and reconciled today. We reviewed his opioid agreement. He has metoprolol for hypertension, is not currently taking a blood thinner. Continued to retirement plan counselor about his tobacco use, which remains at about 3/4 pack a day. He continues to drink beer on a daily basis and finds it to have analgesic effects. His is aware and he does not drive while drinking alcohol, particularly while utilizing pain medication. PHYSICAL EXAMINATION: VITAL SIGNS: He is 6 feet 2 inches, 159 pounds. BMI is 20.5. Blood pressure 161/84, heart rate 70, respirations 16, O2 sat 97. MUSCULOSKELETAL: Cervical range of motion is markedly limited in all planes. He has tenderness and pain throughout his scars. He has muscle tension throughout his neck, trapezius and upper extremities. There is a marked tremor [facility] [address] [place] [address] PAIN MANAGEMENT CONSULTATION Name: CARINA GALVAN Room #: REG [facility]#: [id number] Admission: 03/05/19 ������������������ Attend Phys: Michael Zamoraon MD Discharge: ������������������ Date of : 59 Report #: [id number] in the right upper extremity today. Deep tendon reflexes are 3+ to 4+ biceps, triceps and brachioradialis. He is also hyperreflexic, bordering on clonus in the lower extremities. Noted today are twitching movements that he has that involve the entire body, more so on the right. IMPRESSION: 1. Chronic cervicalgia with radiculopathy with hyperreflexia. MRI does not suggest or show any evidence of spinal cord compression. 2. Ongoing tremor and movement disorder undiagnosed. This may be contributing greatly to his pain. 3. Osteoarthritis. 4. Hemochromatosis, requiring phlebotomy. 5. History of depression and anxiety. 6. History of lumbar radiculopathy. 7. Ongoing tobaccoism with use of tobacco products on a regular basis. RECOMMENDATION: 1. I renewed his medications under terms of our opioid agreement. He will carefully safeguard his medications. 2. I referred him to Dr. Traci Rojas, a movement disorder specialist, at [facility] for her consultation regarding his movement disorder. ��������������������������������������������� <ELECTRONICALLY SIGNED> ���������������������������������������� By: Michael Zamorano MD ��������������������������������������������� 03/09/19 1813 [id number] Michael Zamorano MD /nt
== END ==
LOC: PAIN 06:45
DX: M50.10 Cervical disc disorder with radiculopathy, unspecified cervical region (principal); M19.90 Unspecified osteoarthritis, unspecified site; E83.119 Hemochromatosis, unspecified; I10 Essential (primary) hypertension; Z72.0 Tobacco use; Z79.891 Long term (current) use of opiate analgesic; Z79.899 Other long term (current) drug therapy

== ENCOUNTER → 2019-05-04 | Outpatient (CLI) | payer OTHER ==
[~2019-05-04] VITALS: Ht 188 cm; Wt 73.2 kg
[~2019-05-04] MED LIST changes: +PROPRANOLOL 4040 M1 PO; +TRAZODONE HCL50 MG PO
[2019-05-04 09:21] VITALS: BP 153/92
--- NOTE | 2019-05-04 09:30 | NUR ---
Pain Clinic Assessment: 1. History of Osteoarthritis: GENERALIZED History of Rheumatoid Arthritis: Not Applicable 2. Height: 6 ft. 2 in. 188.0 cm. Weight: 161.4 lb. oz. 73.211 kg. Patient's BMI: 20.7 3. Vital Signs: BP: 153/92 Pulse: 64 Resp: 14 Temp: 02 Sat: 99 ECG Mon: 4. Pain Intensity: 8 5. Fall Risk: Dizziness: Y Needs help standing or walking: N Fallen in the last 3 months: Y Fall risk comments: 6. Patient on Blood Thinner: None 7. History of Hypertension: Y 8. Opioid Therapy greater than 6 weeks: Y Opiate Contract Signed: 05/21/16 9. Risk Assessment Tool Provided: 1-low risk 10. Functional Assessment Tool: 11. Recreational Drug Use: Never Drug Type: Tobacco Use: Current Every Day Smoker Tobacco Type: Cigarettes Amount or Packs/day: 1 How Many Years: 40 Alcohol Use: Yes Frequency: Weekly Quant: BEER 15 A WEEK
--- NOTE | 2019-05-05 09:14 | HPC ---
[facility] [address] [place] [address] PAIN MANAGEMENT CONSULTATION Name: CARINA GALVAN Room #: REG [facility] [place]#: [id number] Admission: 05/04/19 ������������������ Attend Phys: Ann Nazario Discharge: ������������������ Date of : 59 Report #: [id number] THIS REPORT FOR: //name// CC: Ann Laughlin DO DATE OF SERVICE: 05/04/2019 CHIEF COMPLAINT: Severe cervicalgia with radiculopathy. HISTORY OF PRESENT ILLNESS: This is a very pleasant 63-year-old gentleman who returns to the pain clinic today for refill of his medication. He tells me that his pain score is an 8/10 today, mostly in his right arm, right shoulder and neck. He does also have some lower back pain. The patient tells me he has significant numbness in his right arm as well as his leg. He did recently fall, did not hurt himself except for a skinned-up elbow. He feels that it was due to weakness in his leg. His pain is worse when he is driving and sitting and walking, but the medications as well as heat are very helpful. The patient continues to have this movement disorder. He did try to see Dr. Rojas at [facility]. Records had not been sent, so we will refer him and send records over there today, so the patient may make an appointment to follow up for his movement disorder. He tells me that his baclofen does help some with his spasticity that he feels in his arms and legs. The patient feels that his methadone and oxycodone are also beneficial for him with his neuropathic pain as well as his other pain. He denies any problems with constipation or daytime sleepiness from his medications. He would just like a refill of those medications today. ALLERGIES: CHOCOLATE, DARVOCET, PENICILLIN, MORPHINE, MILK AND GABAPENTIN. CURRENT LIST OF MEDICATIONS: Trazodone at bedtime, propranolol 40 mg b.i.d., baclofen 10 mg b.i.d. p.r.n., oxycodone 5/325 b.i.d., methadone 10 mg b.i.d., vitamin E, Lexapro 10 mg daily, metoprolol 25 mg daily, compound cream, aspirin, testosterone every 2 weeks and multivitamins. PQRS: 1. He has generalized osteoarthritis. Denies any rheumatoid arthritis. 2. Height is 6 feet 2 inches, weight is 159, BMI is 20. 3. Vital signs: Blood pressure 153/92, pulse is 64, respirations 14, oxygen saturation is 99%. 4. Pain score is 8/10. 5. Fall risk. Complains of dizziness, does not need help walking or standing, has fallen in the last 3 months. 6. The patient is not on any blood thinners. He does take medicine for [address] [address] PAIN MANAGEMENT CONSULTATION Name: CARINA GALVAN Room #: REG SAMIR Corrales#: [id number] Admission: 05/04/19 ������������������ Attend Phys: Ann Nazario Discharge: ������������������ Date of : 59 Report #: [id number] hypertension. 7. His opioid therapy is greater than 6 weeks; therefore, an opioid signed contract is on the chart. His risk assessment tool is low. Functional assessment is 38/70. 8. Recreational drug use, he denies. He is a current cigarette smoker and does drink beer occasionally throughout the week, about 15 beers a week. We did check the prescription monitoring system. The patient is filling appropriately for his medications. He is filling in a timely fashion. We will check a urine drug screen on this patient today since it has been greater than 1 year. PHYSICAL EXAMINATION: GENERAL: This is alert and orientated 63-year-old gentleman who appears his stated age, placing his current pain score at 8/10 today. He moves with rigidity and has very stiff movements. He is unable to turn his neck from side to side without pain. He has twitching movements throughout his entire body, more so on the right than the left. HEENT: Normocephalic, atraumatic. Extraocular eye muscles are intact. Mucous membranes are moist. NECK: Reveals limited range of motion in all planes. He does have a previous scar from previous laminectomies. He has numbness that radiates from his neck down into his right arm. He has tenderness of his neck in multiple points as well. MUSCULOSKELETAL: The patient has diminished strength in his left arm judging to be 4/5 in all major muscle groups. He also complains of low back tenderness across the lumbar spine area, numbness in his right leg that radiates into his calf. Decreased strength noted on the right leg, 4/5 in all major muscle groups. The patient walks with an antalgic gait with very jerky movements with ambulation. IMPRESSION: 1. Chronic cervicalgia with radiculopathy and hyperreflexia. 2. Ongoing tremor and movement disorder, undiagnosed. 3. Osteoarthritis. 4. Hemochromatosis requiring phlebotomy. 5. History of depression and anxiety. 6. History of lumbar radiculopathy. 7. Management of medications under terms of written opioid agreement. We reviewed the fact that opiate medications are being used to provide analgesia adequate to support activities of daily living, not attempting to achieve a specific pain score on the 0-10 Visual Analog Scale. The current opiate medications are providing sufficient analgesia to allow the patient to participate in activities of daily living. The patient is not exhibiting any aberrant behavior suggestive of drug diversion. The patient is not having any adverse reactions to medications. The patient is not suffering from daytime [facility] [address] [place] [address] PAIN MANAGEMENT CONSULTATION Name: MANDYCARINA Gordon Room #: REG Darnell Corrales#: [id number] Admission: 05/04/19 ������������������ Attend Phys: Ann Nazario Discharge: ������������������ Date of : 59 Report #: [id number] somnolence or mental acuity changes. The patient is managing opiate-induced constipation with appropriate [id number] agents and dietary considerations. The patient was counseled on concern for caution with operating a motor vehicle while using opiate medications. A physical exam was performed and the patient's functional status was evaluated. All patients with back pain were advised against the bed rest greater than 4 days and were advised to return to normal activities. Pain score assessment was noted and the treatment plan was reviewed with the patient. All current medications, both prescribed and OTC were reviewed and reconciled on the electronic medical record. Tobacco screening was accomplished and smoking cessation was advised when indicated. BMI was noted and diet/exercise modification was recommended for all patients following outside normal parameters. I reviewed with the patient today their responsibilities to safeguard prescription medications, reviewed their responsibility to utilize medications only as prescribed by the physician. They are to seek and receive pain medications only from 1 physician group ( [facility]). They are to use 1 pharmacy and keep the clinic informed if they change pharmacies. Their responsibilities include making followup visits in a timely fashion and to avoid abrupt discontinuation of medication usage. Their responsibilities further include bringing their medications (bottles from the pharmacy with residual pills) to the visit for possible confirmation of pill counts and the patient understands it is their responsibility to submit to random drug screens to ensure both that the medications prescribed are present, and that no other controlled substances are present. All prescriptions provided today were generated electronically. PLAN: 1. We discussed treatment options with the patient today. The patient finds his medications very helpful in controlling his pain. Prescription given today for methadone 10 mg b.i.d., #60 for 1-week release and 5-week release; oxycodone 5/325, #60 for release in 1 week and 5-week. 2. Baclofen 10 mg b.i.d., #60 with 1 additional refill given. 3. We will refer the patient again to Dr. Traci Rojas, movement disorder specialist at [facility] for consultation regarding his movement disorder. 4. We have collected urine drug screen as a random test today. 5. Dr. Michael Zamorano did see the patient and collaborated care. The patient is at 90 morphine milligram equivalents according to the CDC guidelines. He will be seen every 2 months. ��������������������������������������������� <ELECTRONICALLY SIGNED> ���������������������������������������� By: Ann Nazario ��������������������������������������������� 05/05/19 0914 [id number] Ann Nazario /nt
== END ==
LOC: PAIN 06:49
DX: M54.12 Radiculopathy, cervical region (principal); M19.90 Unspecified osteoarthritis, unspecified site; M54.16 Radiculopathy, lumbar region; F32.9 Major depressive disorder, single episode, unspecified; F41.9 Anxiety disorder, unspecified; Z79.891 Long term (current) use of opiate analgesic

== ENCOUNTER → 2019-07-09 | Outpatient (CLI) | payer OTHER ==
[~2019-07-09] VITALS: Ht 188 cm; Wt 75.0 kg
[~2019-07-09] MED LIST changes: +BACLOFEN 10MG T10 MG PO
[2019-07-09 09:31] VITALS: BP 158/85
--- NOTE | 2019-07-09 09:39 | NUR ---
Pain Clinic Assessment: 1. History of Osteoarthritis: GENERALIZED History of Rheumatoid Arthritis: Not Applicable 2. Height: 6 ft. 2 in. 188.0 cm. Weight: 165.4 lb. oz. 75.025 kg. Patient's BMI: 21.2 3. Vital Signs: BP: 158/85 Pulse: 65 Resp: 14 Temp: 02 Sat: 98 ECG Mon: 4. Pain Intensity: 8 5. Fall Risk: Dizziness: N Needs help standing or walking: N Fallen in the last 3 months: Y Fall risk comments: 6. Patient on Blood Thinner: None 7. History of Hypertension: Y 8. Opioid Therapy greater than 6 weeks: Y Opiate Contract Signed: 05/21/16 9. Risk Assessment Tool Provided: 1-low risk 10. Functional Assessment Tool: 11. Recreational Drug Use: Never Drug Type: Tobacco Use: Current Every Day Smoker Tobacco Type: Cigarettes Amount or Packs/day: 0.5 How Many Years: 40 Alcohol Use: Yes Frequency: Weekly Quant: BEER
--- NOTE | 2019-07-20 07:52 | HPC ---
[facility] [address] [place] [address] PAIN MANAGEMENT CONSULTATION Name: CARINA GALVAN [facility] [id number] Admission: 07/09/19 Attend Phys: Ann Nazario Discharge: Date of : 59 Report #: [id number] THIS REPORT FOR: //name// CC: Ann Laughlin DO Michael Zamorano MD DATE OF SERVICE: 07/09/2019 CHIEF COMPLAINT: Severe cervicalgia with radiculopathy. HISTORY OF PRESENT ILLNESS: This is a pleasant 63-year-old gentleman who returns to the pain clinic today for a refill of his medications that he uses to help treat his ongoing neck pain that does radiate into his right arm as well as some ongoing low back pain. He reports a pain score of 8/10 today, worse with driving, sitting and walking. He finds his medications beneficial as well as using heat. He currently reports that he is having a sinus infection and he is having headache as well today. The patient does report that he fell 5 days ago, his foot caught on something he tripped over a 5 gallon bucket and hit his head, fell in his face. He did not seek any medical attention. He reports a bump on his head today, but other than that, no cuts or bruises and no loss of consciousness when he fell he reports. ALLERGIES: CHOCOLATE, DARVOCET, PENICILLIN, MORPHINE, MILK AND GABAPENTIN. CURRENT LIST OF MEDICATIONS: Trazodone 50 mg at bedtime, propranolol 40 mg b.i.d., lisinopril, p.r.n., oxycodone 5/325 p.r.n., methadone 10 mg b.i.d., Lexapro 20 mg daily, Toprol-XL 25 mg daily, aspirin, testosterone every 2 weeks and multivitamin. PQRS: 1. He has generalized osteoarthritis and denies any rheumatoid arthritis. 2. Height is 6 feet 2 inches, weight is 165, BMI is 21. 3. Vital signs 150/85, pulse is 65, respirations 14, oxygen sat is 98. 4. Pain score is 8/10. 5. Denies dizziness, does not need help walking or standing, has fallen in the last 3 months. 6. The patient is not on any blood thinners, but does take medicine for hypertension. 7. Opioid therapy is greater than 6 weeks; therefore, an opioid signed contract is on the chart. Risk assessment tool is low. Functional assessment is 38/70. 8. Recreational drug use, he denies. He is a current tobacco smoker of half a pack a day and [place] [address] PAIN MANAGEMENT CONSULTATION Name: CARINA GALVAN Room #: REG SAMIR Corrales#: [id number] Admission: 07/09/19 Attend Phys: Ann Nazario Discharge: Date of : 59 Report #: [id number] According to the prescription monitoring system, the patient is filling appropriately for his medications. He is due early next week for these. He is here in a timely fashion. There is a recent drug screen on the chart as well that is appropriate for his medications. PHYSICAL EXAMINATION: GENERAL: This is alert and orientated 63-year-old gentleman who appears his stated age, placing his current pain score today at 8/10. HEENT: Normocephalic, atraumatic. Extraocular eye muscles are intact. Mucous membranes are moist. He does have some redness on his chin region with no bruising noted from a recent fall. NECK: He has limited range of movement in all planes. Does have scar from previous laminectomies, numbness that radiates from his neck down into his right arm, tenderness in his neck at multiple points as well. MUSCULOSKELETAL: The patient moves with stiff movements, the last twitching noted today. He has diminished strength in his left arm, judging to be 4/5 in all major muscle groups. Lumbar spine tenderness is noted across the lumbosacral area. Decreased strength in his right leg, 4/5 in all major muscle groups. He walks with an antalgic gait with very jerky motions with ambulation. IMPRESSION: 1. Chronic cervicalgia with radiculopathy and hyperreflexia. 2. Ongoing tremor and movement disorder, undiagnosed. 3. Osteoarthritis. 4. Hemochromatosis requiring phlebotomy. 5. History of depression and anxiety. 6. History of lumbar radiculopathy. 7. Management of high risk medications under terms of written opioid agreement. We reviewed the fact that opiate medications are being used to provide analgesia adequate to support activities of daily living, not attempting to achieve a specific pain score on the 0-10 Visual Analog Scale. The current opiate medications are providing sufficient analgesia to allow the patient to participate in activities of daily living. The patient is not exhibiting any aberrant behavior suggestive of drug diversion. The patient is not having any adverse reactions to medications. The patient is not suffering from daytime somnolence or mental acuity changes. The patient is managing opiate-induced constipation with appropriate wogc-tuh-fmlpmmm agents and dietary considerations. The patient was counseled on concern for caution with operating a motor vehicle while using opiate medications. A physical exam was performed and the patient's functional status was evaluated. All patients with back pain were advised against the bed rest greater than 4 days and were advised to return to normal activities. Pain score assessment was noted and the treatment plan was reviewed with the patient. All current medications, both prescribed and OTC were reviewed and reconciled on the [facility] [address] [place] [address] PAIN MANAGEMENT CONSULTATION Name: CARINA GALVAN Room #: REG [facility].#: [id number] Admission: 07/09/19 Attend Phys: Ann Nazario Discharge: Date of : 59 Report #: [id number] electronic medical record. Tobacco screening was accomplished and smoking cessation was advised when indicated. BMI was noted and diet/exercise modification was recommended for all patients following outside normal parameters. I reviewed with the patient today their responsibilities to safeguard prescription medications, reviewed their responsibility to utilize medications only as prescribed by the physician. They are to seek and receive pain medications only from 1 physician group ( [facility]). They are to use 1 pharmacy and keep the clinic informed if they change pharmacies. Their responsibilities include making followup visits in a timely fashion and to avoid abrupt discontinuation of medication usage. Their responsibilities further include bringing their medications (bottles from the pharmacy with residual pills) to the visit for possible confirmation of pill counts and the patient understands it is their responsibility to submit to random drug screens to ensure both that the medications prescribed are present, and that no other controlled substances are present. All prescriptions provided today were generated electronically. PLAN: 1. We discussed treatment options with the patient today. The patient finds his medication for pain very beneficial. He does not have any problems with constipation or daytime sleepiness. Scripts were given today for methadone 10 mg b.i.d., #60 for today and 4-week release and oxycodone 5/325, #60 for today and 4-week release. According to the CDC guidelines, this places the patient at 75 morphine mEq per day; therefore, he is seen every 2 months. 2. The patient tells me he had not seen a movement specialist. He has seen several doctors in the past month, but he does not recall seeing any movement specialist that we had referred him to. The patient though does seem less jerky today in his movements while visiting today with less tremors. 3. The patient is seen in collaboration with Dr. Michael Zamorano today. The patient will return in 2 months. <ELECTRONICALLY SIGNED> By: Ann Nazario 07/20/19 [id number] Ann Nazario /nt
== END ==
LOC: PAIN 06:49
DX: M54.12 Radiculopathy, cervical region (principal); M19.90 Unspecified osteoarthritis, unspecified site; F32.9 Major depressive disorder, single episode, unspecified; F41.9 Anxiety disorder, unspecified; M54.16 Radiculopathy, lumbar region; Z79.891 Long term (current) use of opiate analgesic; E83.119 Hemochromatosis, unspecified; Z88.8 Allergy status to other drugs, medicaments and biological substances; Z79.899 Other long term (current) drug therapy; Z88.0 Allergy status to penicillin

== ENCOUNTER → 2019-09-07 | Outpatient (CLI) | payer OTHER ==
[~2019-09-07] VITALS: Ht 188 cm; Wt 76.7 kg
[2019-09-07 10:45] VITALS: BP 149/89
--- NOTE | 2019-09-07 11:03 | NUR ---
Pain Clinic Assessment: 1. History of Osteoarthritis: BACK HANDS History of Rheumatoid Arthritis: Not Applicable 2. Height: 6 ft. 2 in. 188.0 cm. Weight: 169.2 lb. oz. 76.749 kg. Patient's BMI: 21.7 3. Vital Signs: BP: 149/89 Pulse: 67 Resp: 14 Temp: 02 Sat: 96 ECG Mon: 4. Pain Intensity: 9 5. Fall Risk: Dizziness: N Needs help standing or walking: N Fallen in the last 3 months: Y Fall risk comments: 6. Patient on Blood Thinner: None 7. History of Hypertension: Y 8. Opioid Therapy greater than 6 weeks: Y Opiate Contract Signed: 05/21/16 9. Risk Assessment Tool Provided: LOW RISK 10/09 10. Functional Assessment Tool: 11. Recreational Drug Use: Never Drug Type: Tobacco Use: Current Every Day Smoker Tobacco Type: Cigarettes Amount or Packs/day: 3/4 PACK DAY How Many Years: 45 Alcohol Use: Yes Frequency: Weekly Quant: 1
--- NOTE | 2019-09-07 15:06 | HPC ---
[facility] [address] [place] [address] PAIN MANAGEMENT CONSULTATION Name: CARINA GALVAN Room #: REG [facility].#: [id number] Admission: 09/07/19 Attend Phys: Ann Nazario Discharge: Date of : 59 Report #: [id number] THIS REPORT FOR: //name// CC: Ann Zamorano MD DATE OF SERVICE: 09/07/2019 CHIEF COMPLAINT: Severe cervicalgia with radiculopathy. HISTORY OF PRESENT ILLNESS: This is a 63-year-old gentleman who returns to the pain clinic today for refill of his medications. He reports a pain score of 9/10 today. He feels that his pain is worse because the weather keeps changing and with weather changes it increases his pain in his neck and his right arm, which he reports being the worst areas today. He does have low back pain as well. His pain is a dull aching pain, which is occasionally sharp. He reports that walking aggravates his lower back. Ryan feels the medications are very beneficial despite his pain score. He denies any problems with constipation. He reports only daytime sleepiness if he takes baclofen for muscle tightness, so therefore, he does try to take that medication only in the evening. Today, he would like refills of all of his medications. He recently has had several upper respiratory infections and has been on antibiotics. He feels like he is slowly getting better. ALLERGIES: CHOCOLATE, DARVOCET, PENICILLIN, MORPHINE, MILK, AND GABAPENTIN. CURRENT LIST OF MEDICATIONS: Baclofen 10 mg p.r.n., oxycodone 5/325 b.i.d. p.r.n., methadone 10 mg b.i.d., trazodone, propranolol, vitamin E, Lexapro, Toprol, compound cream, aspirin, testosterone injection, and a multivitamin. PQRS: 1. He has generalized osteoarthritis in his back and hands. Denies any rheumatoid arthritis. 2. Height is 6 feet 2 inches, weight is 169, BMI is 21. 3. Vital signs: Blood pressure 149/89, pulse is 67, respirations 14, oxygen sat is 96. 4. Pain score is 9/10. 5. Denies dizziness, does not need help walking or standing, has not fallen in the last 3 months. 6. The patient is not on any blood thinners, but does take medicine for hypertension. 7. Opioid therapy is greater than 6 weeks; therefore, an opioid signed contract is on the chart. Risk assessment tool is low. Functional assessment is 47/70. 8. Recreational drug use, he denies. He is a current smoker, about 3/4 [place] [address] PAIN MANAGEMENT CONSULTATION Name: ATTILAKIMBERLYCARINA Room #: REG [facility]#: [id number] Admission: 09/07/19 Attend Phys: Ann Nazario Discharge: Date of : 59 Report #: [id number] pack of cigarettes a day, and occasionally drinks alcohol. According to the prescription monitoring system, the patient is filling appropriately on his medications from Dr. Michael Zamorano in a timely fashion. His morphine mEq are 75 MME according to the CDC guidelines. There is a recent drug screen on the chart that is appropriate as well. PHYSICAL EXAMINATION: GENERAL: This is alert and orientated, 63-year-old gentleman who appears his stated age, placing his current pain score at 9/10 today. He is slightly anorexic. HEENT: Normocephalic, atraumatic. Extraocular eye muscles are intact. Mucous membranes are moist. He has a reddened nose due to recent sinus infection. NECK: He has limited range of motion in all planes, a scar from previous laminectomy that is well healed, numbness that radiates from his neck into his right arm. MUSCULOSKELETAL: The patient moves with stiff movements. His walk is antalgic with jerking movements as well. He has decreased strength in his upper and lower extremities 4/5 in all major muscle groups. He does have tenderness in his lumbosacral region noted today. IMPRESSION: 1. Chronic cervicalgia with radiculopathy and hyperreflexia. 2. Ongoing movement disorder and tremors, which is undiagnosed. 3. Osteoarthritis. 4. Hemochromatosis requiring phlebotomy. 5. History of depression and anxiety. 6. Lumbar radiculopathy. 7. Management of high risk medications under terms of written opioid agreement. We reviewed the fact that opiate medications are being used to provide analgesia adequate to support activities of daily living, not attempting to achieve a specific pain score on the 0-10 Visual Analog Scale. The current opiate medications are providing sufficient analgesia to allow the patient to participate in activities of daily living. The patient is not exhibiting any aberrant behavior suggestive of drug diversion. The patient is not having any adverse reactions to medications. The patient is not suffering from daytime somnolence or mental acuity changes. The patient is managing opiate-induced constipation with appropriate tvkl-jur-ttnxyhm agents and dietary considerations. The patient was counseled on concern for caution with operating a motor vehicle while using opiate medications. A physical exam was performed and the patient's functional status was evaluated. All patients with back pain were advised against the bed rest greater than 4 days and were advised to return to normal activities. Pain score assessment was noted and the treatment plan was reviewed with the patient. All current [facility] [address] [place] [address] PAIN MANAGEMENT CONSULTATION Name: CARINA GALVAN Room #: REG [facility].#: [id number] Admission: 09/07/19 Attend Phys: Ann Nazario Discharge: Date of : 59 Report #: [id number] medications, both prescribed and OTC were reviewed and reconciled on the electronic medical record. Tobacco screening was accomplished and smoking cessation was advised when indicated. BMI was noted and diet/exercise modification was recommended for all patients following outside normal parameters. I reviewed with the patient today their responsibilities to safeguard prescription medications, reviewed their responsibility to utilize medications only as prescribed by the physician. They are to seek and receive pain medications only from 1 physician group ( [facility]). They are to use 1 pharmacy and keep the clinic informed if they change pharmacies. Their responsibilities include making followup visits in a timely fashion and to avoid abrupt discontinuation of medication usage. Their responsibilities further include bringing their medications (bottles from the pharmacy with residual pills) to the visit for possible confirmation of pill counts and the patient understands it is their responsibility to submit to random drug screens to ensure both that the medications prescribed are present, and that no other controlled substances are present. All prescriptions provided today were generated electronically. PLAN: 1. We discussed treatment options with the patient today. The patient finds his methadone and oxycodone beneficial in controlling his pain. We will have Dr. Micahel Zamorano e-sign his prescriptions today for 2 months; oxycodone 5/325, #60 for today and 4-week as well as methadone 10 mg, #60 for today and 4-week release. 2. I will refill his baclofen 10 mg b.i.d. #60 with 1 additional refill. The patient does take these on an as-needed basis due to some sleepiness. I encouraged him to split them in half if he needs to attempt to take it during the day with increased muscle spasms. He verbalizes understanding. 3. I again encouraged the patient to decrease his cigarette smoking. He does use 3/4 of a pack a day. I explained that his pain medications may work more effectively if he decreases his cigarette smoking. 4. The patient will follow up in 2 months. The patient is seen in collaboration today with Dr. Michael Zamorano. <ELECTRONICALLY SIGNED> By: Ann Nazario 09/07/19 [id number] Ann Nazario /nt
== END ==
LOC: PAIN 06:55
DX: M54.12 Radiculopathy, cervical region (principal); R25.1 Tremor, unspecified; E83.119 Hemochromatosis, unspecified; M54.16 Radiculopathy, lumbar region; F32.9 Major depressive disorder, single episode, unspecified; F41.9 Anxiety disorder, unspecified; Z88.0 Allergy status to penicillin; Z91.011 Allergy to milk products; Z91.018 Allergy to other foods; Z88.8 Allergy status to other drugs, medicaments and biological substances; Z79.899 Other long term (current) drug therapy

== ENCOUNTER → 2019-11-05 | Outpatient (CLI) | payer OTHER ==
[~2019-11-05] VITALS: Ht 188 cm; Wt 76.6 kg
--- NOTE | ~2019-11-05 | HPC ---
[facility] [place] [address] PAIN MANAGEMENT CONSULTATION Name: CARINA GALVAN Room #: REG [facility]ell Anderson.#: [id number] Admission: 11/05/19 Attend Phys: Michael Zamorano MD Discharge: Date of : 59 Report #: [id number] THIS REPORT FOR: //name// cc: Dominga Laughlin David J. DO ~ THIS REPORT FOR: //name// CC: DOMINGA Zamorano DATE OF SERVICE: 11/05/2019 Followup visit for chronic severe cervicalgia and radiculopathy, status post extensive anterior-posterior cervical laminectomy and fusion. The patient has been a longstanding patient of mine. I first saw him in our clinic in June of 2010. He has been on medication for chronic pain management since that time. His history is complex related to his spine. He has had multiple back surgeries and neck surgeries. He has been treated in the past by Dr. Fraire, Dr. Contreras, Dr. Shelton, Dr. Dimas. He had an intrathecal pump placed by Dr. Jiménez many years ago, which failed, leaked and was removed. He has had spinal cord stimulation therapy, which failed in helping his pain. This ultimately managed with medication and I have been providing him with stable dose of medication, which has been unchanging now for over 5 years. He is actually down from his peak. We have worked to taper his medication to the lowest manageable dose. At one time, he was on 40 mg of methadone daily in addition to oxycodone 5 mg taken every 6 hours. He is now taking 20 mg of methadone daily and uses oxycodone 5/325 twice daily, substantial reduction. At one time, he was on Valium for spasticity, has been off that for some time as well. His pain scores have not really changed as we have tapered his medication. I think this is a reflection of the poor subjective nature of this lousy test we used to monitor treatment. He has, however, made the reduction in medication without dramatically affecting his function or his pain score. He has a significant tremor. We have addressed this on several occasions in the past. I suggest that we continue to try and find an answer. He tells me that he has remained undiagnosed. His tremor is almost all right sided involving his hand and his leg. It affects his gait. His left is fairly straightforward and steady. He has been seen by Dr. Ridley. I have looked for his referral to provide some guidance on treatment and in diagnosis, but I do not think that we have had a satisfactory answer. I worked with Dr. Reanna Rojas, who specializes in the movement disorders. I have recommended that we seek out a second opinion consultation from her. The most recent neurologic consultation [address] [address] PAIN MANAGEMENT CONSULTATION Name: CARINA GALVAN Room #: REG SAMIR Corrales#: [id number] Admission: 11/05/19 Attend Phys: Michael Zamorano MD Discharge: Date of : 59 Report #: [id number] that I see is from Dr. Thom Gonzalez in 2018. His assessment was: A 62-year-old man with tremor, he does have evidence on lab testing for a fat soluble vitamin deficiency and he has evidence of possible mild alcoholic liver disease. His only recommendation was to abstain from alcohol and vitamin D was prescribed. He is not completely followed up on that although he has cut down on the amount of beer that he drinks. He nonetheless may have some alcohol-related issues. He has increased his drinking some recently. Pain score is an 8/10. He has diffuse pain through his neck, into his arms and also across his low back. He is able to function with the medicines that we provide and denies side effects. He takes methadone morning and evening, oxycodone 5 mg twice a day for breakthrough and his prescription drug monitoring information shows that his prescriptions are on schedule with no unexpected entries. He has been given testosterone replacement for the lowering of testosterone expected with his opioid therapy. PQRS REVIEW: Positive for diffuse osteoarthritis. BMI is stable at 21.7, blood pressure 159/105, heart rate 77, respirations 16, O2 98. His pain intensity is 8/10. He needs some help standing or walking, but despite his antalgic features and his weak right leg, he has not fallen recently. He is on no blood thinning medications. He has a history of hypertension treated by his primary care physician. He is on an opioid agreement most recently signed in 2016 and is considered at low risk for addiction by the ORT. He scores 1 for use of alcohol. His functional assessment score is poor 56/70 and he continues to smoke 3/4 of a pack a day and has increasing his drinking again after backing off. PHYSICAL EXAMINATION: GENERAL: He has a very noticeable head and neck tremor. He is pleasant, alert and oriented, shows no signs of overmedication. He may be a little bit forgetful, but this is chronic. VITAL SIGNS: As noted above. CHEST: Clear. CARDIAC: Rhythm is regular. I did not hear a murmur. ABDOMEN: Soft. MUSCULOSKELETAL: Examination of the spine reveals multiple scars in the neck and lower back from previous surgeries. There is limited range of motion of the neck. Limited range of motion across the lumbar spine in flexion and extension. He walks with a stiff antalgic gait. His right leg is weak. Examination of the upper extremities reveals diffuse weakness throughout the right arm as well, particularly with triceps. 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 He has 2+ deep tendon reflexes biceps, 1+ reflex at the brachioradialis and triceps is 1+. This is symmetrical bilaterally. Deep tendon reflexes in lower extremity are 2+ knees and ankles. There is no evidence of hyperreflexia to suggest cord compression. Sensation is diminished, particularly in the right upper extremity involving multiple dermatomes of C6, C7, C8. [facility] [address] [place] [address] PAIN MANAGEMENT CONSULTATION Name: CARINA GALVAN Room #: REG SAMIR Corrales#: [id number] Admission: 11/05/19 Attend Phys: Michael Zamorano MD Discharge: Date of : 59 Report #: [id number] IMPRESSION: 1. Chronic intractable pain with cervicalgia, radiculopathy. His reflexes have improved since last visit in the lower extremities when he was hyperreflexic. 2. Ongoing movement disorder and tremors, remaining undiagnosed. 3. Osteoarthritis. 4. Hemochromatosis requiring phlebotomy on a regular basis. 5. Lumbar radiculopathy, post-laminectomy syndrome. 6. Management of high risk medications under terms of written opioid agreement. PLAN: I renewed his medications under terms of our agreement and we will see him at 2-month intervals. Consultation was sent to Dr. Reanna Rush to assess him for his movement disorder to see if she has anything else to offer. I still think that we are missing something here. She may be able to help with both diagnosis and therapeutic options. By: 1213 12 Michael Zamorano MD /nt
[2019-11-05 10:20] VITALS: BP 159/105
--- NOTE | 2019-11-05 10:43 | NUR ---
Pain Clinic Assessment: 1. History of Osteoarthritis: BACK HANDS History of Rheumatoid Arthritis: Not Applicable 2. Height: 6 ft. 2 in. 188.0 cm. Weight: 168.8 lb. oz. 76.567 kg. Patient's BMI: 21.7 3. Vital Signs: BP: 159/105 Pulse: 77 Resp: 16 Temp: 02 Sat: 97 ECG Mon: 4. Pain Intensity: 8 5. Fall Risk: Dizziness: N Needs help standing or walking: N Fallen in the last 3 months: Y Fall risk comments: 6. Patient on Blood Thinner: None 7. History of Hypertension: Y 8. Opioid Therapy greater than 6 weeks: Y Opiate Contract Signed: 05/21/16 9. Risk Assessment Tool Provided: LOW RISK -1 10. Functional Assessment Tool: 56/ 11. Recreational Drug Use: Never Drug Type: Tobacco Use: Current Every Day Smoker Tobacco Type: Cigarettes Amount or Packs/day: 3/4 ppd How Many Years: 50 Alcohol Use: Yes Frequency: Daily Quant: 6/day sometimes
== END ==
LOC: PAIN 06:52
DX: M54.12 Radiculopathy, cervical region (principal); M19.90 Unspecified osteoarthritis, unspecified site; M54.16 Radiculopathy, lumbar region; E83.119 Hemochromatosis, unspecified; Z79.891 Long term (current) use of opiate analgesic

== ENCOUNTER → 2019-12-21 | Outpatient (CLI) | payer OTHER ==
[~2019-12-21] VITALS: Ht 188 cm; Wt 76.1 kg
[2019-12-21 10:05] VITALS: BP 143/87
--- NOTE | 2019-12-21 10:30 | NUR ---
Pain Clinic Assessment: 1. History of Osteoarthritis: BACK HANDS History of Rheumatoid Arthritis: Not Applicable 2. Height: 6 ft. 2 in. 188.0 cm. Weight: 167.8 lb. oz. 76.114 kg. Patient's BMI: 21.5 3. Vital Signs: BP: 143/87 Pulse: 74 Resp: 14 Temp: 02 Sat: 97 ECG Mon: 4. Pain Intensity: 8 5. Fall Risk: Dizziness: N Needs help standing or walking: N Fallen in the last 3 months: N Fall risk comments: 6. Patient on Blood Thinner: None 7. History of Hypertension: Y 8. Opioid Therapy greater than 6 weeks: Y Opiate Contract Signed: 05/21/16 9. Risk Assessment Tool Provided: LOW RISK -1 10. Functional Assessment Tool: / 11. Recreational Drug Use: Never Drug Type: Tobacco Use: Current Every Day Smoker Tobacco Type: Cigarettes Amount or Packs/day: 3/4 PACKS How Many Years: 45 Alcohol Use: Yes Frequency: Special Occasions Quant: BEER
--- NOTE | 2019-12-22 08:32 | HPC ---
[facility] [address] [place] [address] PAIN MANAGEMENT CONSULTATION Name: CARINA GALVAN Room #: REG [facility].#: [id number] Admission: 12/21/19 Attend Phys: Ann Nazario Discharge: Date of : 59 Report #: [id number] THIS REPORT FOR: cc: Tushar Laughlin,Tushar Zhang,Ann ANDUJAR ~ CC: Ann Laughlin DATE OF SERVICE: 12/21/2019 CHIEF COMPLAINT: Chronic severe cervicalgia and radiculopathy, status post anterior, posterior cervical laminectomy and fusion. HISTORY OF PRESENT ILLNESS: This is a 64-year-old gentleman who returns to the pain clinic today for refill of his medications. He is reporting a pain score at 8/10 with pain centrally located in his neck that radiates into his arms and hands. He does also complain of some shoulder pain and lower back pain, rating his pain score 8/10 today with a dull, achy, sharpness, worse with walking and standing and weather changes. It is raining today, so he feels his pain has increased due to that. He feels the medications have been beneficial as well as resting. Today, he denies any problems with constipation or daytime sleepiness as a result of his medications. We are screening the patient further coronavirus here in the hospital. The patient walked, past the screening people. He is here present with a cough today as well as congestion, running a temperature of 99.8 today. We explained the importance of screening the population to not infect others. We have placed him with a mask on in his room and are keeping distance from him, though he reports he has not been around any people that have been infected with the coronavirus. ALLERGIES: CHOCOLATE, DARVOCET, PENICILLIN, MORPHINE, MILK and GABAPENTIN. MEDICATIONS: Oxycodone 5/325 p.r.n., methadone 10 mg b.i.d., baclofen, trazodone, propranolol, vitamin E, Lexapro, Toprol, compound cream which is diclofenac, aspirin, Depo-Testosterone and multivitamin. PQRS: 1. He has a history of osteoarthritis in his spine as well as his hands. Denies any rheumatoid arthritis. 2. Height is 6 feet. 3. Weight is 167, BMI is 21. 4. Vital signs 143/87, pulse is 74, respirations 14, oxygen sat is 97. 5. Pain score is 8/10. 6. Denies dizziness, does not need help walking or standing, [place] [address] PAIN MANAGEMENT CONSULTATION Name: CARINA GALVAN Room #: REG [facility].#: [id number] Admission: 12/21/19 Attend Phys: Ann Nazario Discharge: Date of : 59 Report #: [id number] the last 3 months. 8. The patient is not on any blood thinners, but does take medicine for hypertension. His opioid therapy is greater than 6 weeks; therefore, an opioid signed contract is on the chart. Risk assessment tool is low. Functional assessment is 56/70. 9. Recreational drug use, he denies. He is a current smoker of 3/4th of a pack of cigarettes a day and occasionally drinks alcohol. According to the prescription monitoring system, the patient is filling appropriately for his medications. He is due next week to have these filled. His morphine milliequivalent per day is 75 according to the CDC guidelines. There is a recent drug screen on his chart that is appropriate as well. PHYSICAL EXAMINATION: GENERAL: This is an alert and orientated, pleasant gentleman who appears his stated age of 64. He does not show signs of overmedication, rating his pain score today 8/10. HEENT: Normocephalic, atraumatic. Extraocular eye muscles are intact. Slight nasal congestion today. CHEST: Clear, but does have nonproductive cough. MUSCULOSKELETAL: Multiple scars in his cervical and lumbar spine from previous surgery. He has limited range of motion in his neck as well as flexion and extension of his lumbar spine. He has tremors in his arms and hands. He walks with an antalgic, shuffling, stiff gait. 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 IMPRESSION: 1. Chronic intractable pain with cervicalgia and radiculopathy. 2. Ongoing movement disorder and tremors, remaining undiagnosed, appointment with doctor next month. 3. Osteoarthritis. 4. Hemochromatosis, requiring phlebotomy. 5. Lumbar radiculopathy, post-laminectomy syndrome. 6. Management of high risk medications under terms of written opioid agreement. We reviewed the fact that opiate medications are being used to provide analgesia adequate to support activities of daily living, not attempting to achieve a specific pain score on the 0-10 Visual Analog Scale. The current opiate medications are providing sufficient analgesia to allow the patient to participate in activities of daily living. The patient is not exhibiting any aberrant behavior suggestive of drug diversion. The patient is not having any adverse reactions to medications. The patient is not suffering from daytime somnolence or mental acuity changes. The patient is managing opiate-induced constipation with appropriate zjzs-nie-bweezjc agents and dietary considerations. The patient was counseled on concern for caution with operating [facility] [address] [place] [address] PAIN MANAGEMENT CONSULTATION Name: CARINA GALVAN Room #: REG [facility]es#: [id number] Admission: 12/21/19 Attend Phys: Ann Nazario Discharge: Date of : 59 Report #: [id number] a motor vehicle while using opiate medications. PLAN: 1. We discussed treatment options with the patient today. The patient has an appointment with Dr. Rush in early January for his movement disorder. 2. The patient reports he is not experiencing coronavirus symptoms. He feels he has just congestion in his chest and nose. He has not been around anybody that has been diagnosed with coronavirus. 3. We will refill his methadone, oxycodone and baclofen for 3 months, sending these electronically to his pharmacy at [facility]. The patient verbalizes that, that has been helpful of not having to go to the pharmacy to get his medicines. 4. The patient is seen in collaboration with Dr. Michael Zamorano today who collaborated care and sent medicines electronically. <ELECTRONICALLY SIGNED> By: Ann Nazario 12/22/19 0832 [id number] Ann Nazario /nt
== END ==
LOC: PAIN 06:44
DX: M54.12 Radiculopathy, cervical region (principal); M54.16 Radiculopathy, lumbar region; G89.29 Other chronic pain; M19.90 Unspecified osteoarthritis, unspecified site; E83.119 Hemochromatosis, unspecified; M96.1 Postlaminectomy syndrome, not elsewhere classified; Z98.1 Arthrodesis status; Z88.0 Allergy status to penicillin; Z88.8 Allergy status to other drugs, medicaments and biological substances; Z68.21 Body mass index [BMI] 21.0-21.9, adult; Z79.899 Other long term (current) drug therapy

== ENCOUNTER → 2020-02-25 | Outpatient (CLI) | payer OTHER ==
[~2020-02-25] VITALS: Ht 188 cm; Wt 78.2 kg
[2020-02-25 09:06] VITALS: BP 160/88
--- NOTE | 2020-02-25 09:20 | NUR ---
Pain Clinic Assessment: 1. History of Osteoarthritis: BACK HANDS History of Rheumatoid Arthritis: Not Applicable 2. Height: 6 ft. 2 in. 188.0 cm. Weight: 172.4 lb. oz. 78.200 kg. Patient's BMI: 22.1 3. Vital Signs: BP: 160/88 Pulse: 71 Resp: 16 Temp: 02 Sat: 98 ECG Mon: 4. Pain Intensity: 9 5. Fall Risk: Dizziness: N Needs help standing or walking: N Fallen in the last 3 months: N Fall risk comments: 6. Patient on Blood Thinner: None 7. History of Hypertension: Y 8. Opioid Therapy greater than 6 weeks: Y Opiate Contract Signed: 05/21/16 9. Risk Assessment Tool Provided: LOW RISK -1 10. Functional Assessment Tool: 56/ 11. Recreational Drug Use: Never Drug Type: Tobacco Use: Current Every Day Smoker Tobacco Type: Cigarettes Amount or Packs/day: 3/4 How Many Years: 45 Alcohol Use: Yes Frequency: Weekly Quant: 10
--- NOTE | 2020-02-25 15:39 | HPC ---
[facility] [address] [place] [address] PAIN MANAGEMENT CONSULTATION Name: CARINA GALVAN Room #: REG [facility].#: [id number] Admission: 02/25/20 Attend Phys: Ann Nazario Discharge: Date of : 59 Report #: [id number] THIS REPORT FOR: cc: Tushar Laughlin David J. DO Hocker, Amanda CNS ~ CC: Michael Zamorano MD DATE OF SERVICE: 02/25/2020 CHIEF COMPLAINT: Chronic severe is cervicalgia and radiculopathy, status post anterior and posterior cervical laminectomy. HISTORY OF PRESENT ILLNESS: This is a 64-year-old gentleman who returns to the pain clinic today for a refill of his opioid medications that he has been on for several years. He continues to have pain in his neck and right arm. He reports that his hand is quite numb. He does also have ongoing low back pain that radiates down his right leg with numbness in his right leg as well. He states that it is a dull aching, sharp pain. He does rate his pain score at 9/10 today, but he reports that it is fairly well controlled. It is slightly increased today due to weather changes. He feels when there is damp weather his pain is increased. He states when he is active around the garage and using his medications these are both beneficial in helping him with his pain control. He denies problems with daytime somnolence or constipation issues. The patient does state that he did see Dr. Rojas in January, who is the motion specialist at [facility]. He reports he had an MRI of the brain, though per his report to me, they did not find anything that would cause his tremors. We have not received any records from that visit. The patient states he did not start any new medications from her. ALLERGIES: CHOCOLATE, DARVOCET, PENICILLIN, MORPHINE, MILK, GABAPENTIN. MEDICATIONS: Baclofen 10 mg p.r.n., oxycodone 5/325 b.i.d., methadone 10 mg b.i.d., trazodone, propranolol, Lexapro, Toprol, aspirin, Depo-Testosterone and multivitamin. PQRS: 1. He has osteoarthritis in his spine and hands. He denies any rheumatoid arthritis. 2. Height is 6 feet 2 inches. 3. Weight is 172, BMI is 22. 4. Vital signs 160/88, pulse is 71, respirations 16, oxygen sat is 98. 5. Pain score is 9/10. 6. Denies dizziness, does not need help walking or standing, has not fallen in the last [address] [place] [address] PAIN MANAGEMENT CONSULTATION Name: ATTILAKIMBERLYCARINA Room #: REG [facility]es#: [id number] Admission: 02/25/20 Attend Phys: Ann Nazario Discharge: Date of : 59 Report #: [id number] 7. The patient is not on any blood thinners, but does take medicine for hypertension. His opioid therapy is greater than 6 weeks; therefore, an opioid signed contract is on the chart. Risk assessment tool is low. Functional assessment is 56/70. 8. Recreational drug use, he denies. He is a current smoker, 3/4 of pack of cigarettes a day and he does drink alcohol. According to the prescription monitoring system, the patient is filling appropriately for his medications, filling them in a timely fashion. He is due to fill them this week. His morphine mEq according to the CDC guidelines is 75. Therefore, in our clinic he is seen every 2 months. There is a drug screen on the chart that is appropriate and we will recheck that after his next visit. PHYSICAL EXAMINATION: GENERAL: This is alert and orientated, well-nourished gentleman who appears his stated age. He shows no sign of overmedication. He is rating his pain score at 9/10 today. HEENT: Normocephalic, atraumatic. Extraocular eye muscles are intact. He is wearing a mask. MUSCULOSKELETAL: He has limited range of motion in his neck as well as in his lower back with flexion and extension. Does complain of numbness that ranged from his cervical spine down his right arm following the C6-C7 dermatomal distribution. Does have a slight tremor in his arms bilaterally. He walks with an antalgic shuffling gait. Pain in his lower back, radiates down his right leg. His lower extremity strength judged to be 5/5 in all major muscle groups. IMPRESSION: 1. Chronic intractable pain with cervicalgia and radiculopathy. 2. Ongoing movement disorder with tremors remaining undiagnosed. 3. Osteoarthritis. 4. Lumbar radiculopathy, post-laminectomy syndrome. 5. Hemochromatosis requiring phlebotomy. 6. Management of high risk medications under terms of written opioid agreement. We reviewed the fact that opiate medications are being used to provide analgesia adequate to support activities of daily living, not attempting to achieve a specific pain score on the 0-10 Visual Analog Scale. The current opiate medications are providing sufficient analgesia to allow the patient to participate in activities of daily living. The patient is not exhibiting any aberrant behavior suggestive of drug diversion. The patient is not having any adverse reactions to medications. The patient is not suffering from daytime somnolence or mental acuity changes. The patient is managing opiate-induced constipation with appropriate fikr-nhn-zatbjsl agents and dietary considerations. The patient was counseled on concern for caution with operating a motor vehicle while using opiate medications. [facility] [address] [place] [address] PAIN MANAGEMENT CONSULTATION Name: CARINA GALVAN Room #: REG [facility].#: [id number] Admission: 02/25/20 Attend Phys: Ann Nazario Discharge: Date of : 59 Report #: [id number] PLAN: 1. We discussed treatment options with the patient today. The patient finds his medications very beneficial despite having an increased pain score today. It allows his ability to work around his garage and take care of his house and yard. Refills will be given today for his methadone 10 mg b.i.d., #60 for today and 4-week supply as well as oxycodone 5/325, #60 for 2 months. These will be sent electronically by Dr. Michael Zamorano. 2. I will resend his baclofen 10 mg tablets. Patient takes 1-2 tablets a day for muscle spasms. He feels that these are beneficial, though at times they make him sleepy, so he tends to take them in the evening hours. 3. The patient will return in 2 months' time. The patient is seen today in collaboration with Dr. Michael Zamorano. <ELECTRONICALLY SIGNED> By: Ann Nazario 02/25/20 1539 [id number] 100 Ann liu
== END ==
LOC: PAIN 06:39
DX: M54.12 Radiculopathy, cervical region (principal); M96.1 Postlaminectomy syndrome, not elsewhere classified; M19.90 Unspecified osteoarthritis, unspecified site; Z79.891 Long term (current) use of opiate analgesic

== ENCOUNTER → 2020-04-28 | Outpatient (CLI) | payer OTHER ==
[~2020-04-28] MED LIST changes: +ELIQUIS2.5 MG PO
[2020-04-28 14:32] VITALS: BP 119/65
--- NOTE | 2020-04-28 14:49 | NUR ---
Pain Clinic Assessment: 1. History of Osteoarthritis: BACK HANDS History of Rheumatoid Arthritis: Not Applicable 2. Height: 6 ft. 2 in. 188.0 cm. Weight: lb. oz. kg. Patient's BMI: 3. Vital Signs: BP: 119/65 Pulse: 74 Resp: 16 Temp: 02 Sat: 97 ECG Mon: 4. Pain Intensity: 6 5. Fall Risk: Dizziness: Y Needs help standing or walking: N Fallen in the last 3 months: N Fall risk comments: 6. Patient on Blood Thinner: None 7. History of Hypertension: Y 8. Opioid Therapy greater than 6 weeks: Y Opiate Contract Signed: 05/21/16 9. Risk Assessment Tool Provided: LOW RISK -1 10. Functional Assessment Tool: 56/ 11. Recreational Drug Use: Never Drug Type: Tobacco Use: Current Every Day Smoker Tobacco Type: Amount or Packs/day: How Many Years: Alcohol Use: Yes Frequency: Quant:
--- NOTE | 2020-04-29 09:45 | HPC ---
[facility] [address] [place] [address] PAIN MANAGEMENT CONSULTATION Name: CARINA GALVAN Room #: REG [facility].#: [id number] Admission: 04/28/20 Attend Phys: Ann Nazario Discharge: Date of : 59 Report #: [id number] THIS REPORT FOR: cc: Tushar Laughlin David J. DO Hocker, Amanda CNS ~ CC: Ann Zamorano MD DATE OF SERVICE: 04/28/2020 CHIEF COMPLAINT: Chronic severe cervicalgia and radiculopathy, status post anterior and posterior cervical laminectomy. HISTORY OF PRESENT ILLNESS: This is a very pleasant 64-year-old gentleman who returns to the pain clinic today to discuss his opioid medications and refill them. He feels that overall as far as pain standpoint, he is doing quite well. His pain score is 6/10 in his neck and right arm. He does have low back and right leg pain that does radiate to his foot. It is a chronic aching, sharp pain with some numbness, worse with weather changes. He believes that when it is hot and humid, his pain is increased. He feels that the medication and sitting as well as working in his garage are beneficial for him. He denies problems with constipation or daytime somnolence as a result of his methadone and her oxycodone. He does report he is not in need of his baclofen today, though he does take that on an as needed basis. The patient does report he was recently hospitalized at [facility]. He had an episode when he was riding his lawnmower where he passed out, had a syncopal episode. His friends saw him, transferred him to the ground where they did call the paramedics. He reports he was "out of it" for 3 days at [facility]. He was found to have bilateral pulmonary embolisms. His doctors believe that it is related to his hemochromatosis and his Port-A-Cath. Currently, he is taking Eliquis twice a day. He is in the process of being reevaluated for possible new port. He is hopeful not to continue his anticoagulation therapy very long due to his hemochromatosis, but he does have a followup in a couple of weeks with those doctors. He states currently he feels much better, though he has been taking it easy at home. ALLERGIES: CHOCOLATE, DARVOCET, PENICILLIN, MORPHINE, MILK and GABAPENTIN. CURRENT LIST OF MEDICATIONS: Eliquis 2.5 mg b.i.d., baclofen p.r.n., oxycodone 5/325 b.i.d., methadone 10 mg b.i.d., trazodone, propranolol, Lexapro, Toprol, aspirin, testosterone and multivitamin. PQRS: 1. He has osteoarthritis in his hands and back and neck. Denies any rheumatoid [address] [address] PAIN MANAGEMENT CONSULTATION Name: ATTILAKIMBERLYCARINA Room #: [facility]#: [id number] Admission: 04/28/20 Attend Phys: Ann Nazario Discharge: Date of : 59 Report #: [id number] arthritis. 2. Height is 6 feet 2 inches and weight is 172, BMI is 22. 3. Vital signs 119/65, pulse is 74, respirations 16, oxygen sat is 97%. 4. Pain score is 6/10. 5. Complains of slight dizziness, does not need help walking or standing, has not fallen, though did have a syncopal episode. 6. The patient is on Eliquis. The patient does have a history of hypertension. His opioid therapy is greater than 6 weeks; therefore, an opioid signed contract is on the chart. Risk assessment is low. Functional assessment is 56/70. 7. The patient denies any recreational drug use. He does currently smoke and does drink alcohol 3-4 beers per day. According to the prescription monitoring system, the patient is due to fill his medication today. He does fill them in a timely fashion. His morphine mEq according to the CDC guidelines is 75. There is a recent drug screen on the chart that was appropriate for his medications. We will recheck that at his next appointment. PHYSICAL EXAMINATION: GENERAL: This is alert and orientated, well-nourished gentleman who appears his stated age, showing no signs of overmedication. He is rating his pain score at 6/10 today. HEENT: Normocephalic, atraumatic. Extraocular eye muscles are intact. He is wearing a mask. MUSCULOSKELETAL: Cervical range of motion is limited in all planes. He has tenderness and pain throughout his neck and he has well-healed scars. He has muscle tension throughout his neck, trapezius and upper extremities. He has a tremor in his right upper extremity. He walks with antalgic shuffling gait. He has pain in his lower back that does radiate down his right leg. Lower extremity strength judged to be 5/5 in all major muscle groups. LUNGS: Denies difficulty breathing, has diminished lung sounds. IMPRESSION: 1. Chronic intractable pain with cervicalgia and radiculopathy. 2. Ongoing movement disorder with tremors, remaining undiagnosed. 3. Osteoarthritis. 4. Lumbar radiculopathy, post-laminectomy syndrome. 5. Bilateral pulmonary embolism, on anticoagulation therapy. 6. Hemochromatosis, requiring phlebotomy. 7. Management of high risk medications under terms of written opioid agreement. We reviewed the fact that opiate medications are being used to provide analgesia adequate to support activities of daily living, not attempting to achieve a specific pain score on the 0-10 Visual Analog Scale. The current opiate medications are providing sufficient analgesia to allow the patient to [facility] [address] [place] [address] PAIN MANAGEMENT CONSULTATION Name: MANDYCARINA Gordon Room #: REG [facility]#: [id number] Admission: 04/28/20 Attend Phys: Ann Nazario Discharge: Date of : 59 Report #: [id number] participate in activities of daily living. The patient is not exhibiting any aberrant behavior suggestive of drug diversion. The patient is not having any adverse reactions to medications. The patient is not suffering from daytime somnolence or mental acuity changes. The patient is managing opiate-induced constipation with appropriate kecq-ptv-spvtyek agents and dietary considerations. The patient was counseled on concern for caution with operating a motor vehicle while using opiate medications. PLAN: 1. We discussed treatment options with the patient today due to the patient's recent hospitalization. He is now on blood thinner. The patient is hopeful to stop this very shortly. 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 He has been on it only 3 weeks. They are considering replacing his Port-A-Cath that he has his blood drawn from his hemochromatosis. He has a followup next week per his report with his doctors. 2. We will refill his methadone and his oxycodone, sending these electronically for today and [address] Michael Zamorano. He finds these beneficial in helping him control his pain. 3. The patient is not needing his baclofen refill today. He takes these on an as needed basis. 4. We did discuss about smoking cessation, especially since he had a pulmonary embolism and to try to decrease his alcohol intake. The patient reports he will consider this recommendation. 5. The patient is seen in collaboration with Dr. iMchael Zamorano who did see the patient as well today. <ELECTRONICALLY SIGNED> By: Ann Nazario 04/29/20 0945 1522 193 Ann Nazario /nt
== END ==
LOC: PAIN 04-25 07:21
PROVIDERS: ATTEND Clinical Nurse Specialist Adult Health
DX: M54.12 Radiculopathy, cervical region (principal); M96.1 Postlaminectomy syndrome, not elsewhere classified; G25.2 Other specified forms of tremor; M19.90 Unspecified osteoarthritis, unspecified site; I26.99 Other pulmonary embolism without acute cor pulmonale; E83.119 Hemochromatosis, unspecified; F11.20 Opioid dependence, uncomplicated; Z88.8 Allergy status to other drugs, medicaments and biological substances; Z79.899 Other long term (current) drug therapy

== ENCOUNTER → 2020-06-20 | Outpatient (CLI) | payer OTHER ==
[~2020-06-20] VITALS: Ht 188 cm; Wt 74.5 kg
[2020-06-20 09:18] VITALS: BP 130/84
--- NOTE | 2020-06-20 09:26 | NUR ---
Pain Clinic Assessment: 1. History of Osteoarthritis: BACK HANDS History of Rheumatoid Arthritis: Not Applicable 2. Height: 6 ft. 2 in. 188.0 cm. Weight: 164.2 lb. oz. 74.481 kg. Patient's BMI: 21.1 3. Vital Signs: BP: 130/84 Pulse: 63 Resp: 18 Temp: 02 Sat: 99 ECG Mon: 4. Pain Intensity: 6-7 5. Fall Risk: Dizziness: N Needs help standing or walking: N Fallen in the last 3 months: Y Fall risk comments: 6. Patient on Blood Thinner: ALISTAIRIS 7. History of Hypertension: Y 8. Opioid Therapy greater than 6 weeks: Y Opiate Contract Signed: 05/21/16 9. Risk Assessment Tool Provided: LOW RISK -1 10. Functional Assessment Tool: 11. Recreational Drug Use: Never Drug Type: Tobacco Use: Current Every Day Smoker Tobacco Type: Amount or Packs/day: How Many Years: Alcohol Use: Yes Frequency: Daily Quant: PUTS [place]IS[employer] IN MORNING COFFEE-ONLY WAY I CAN TAKE MY MEDS
--- NOTE | 2020-06-21 08:03 | HPC ---
[facility] [address] [place] [address] PAIN MANAGEMENT CONSULTATION Name: CARINA GALVAN Room #: REG [facility] Justin.#: [id number] Admission: 06/20/20 Attend Phys: Ann Nazario Discharge: Date of : 59 Report #: [id number] THIS REPORT FOR: cc: Tushar Laughlin David J. DO Hocker,Ann ANDUJAR ~ CC: Ann Zamorano MD DATE OF SERVICE: 06/20/2020 CHIEF COMPLAINT: Severe cervicalgia with radiculopathy, status post anterior and posterior cervical laminectomy. HISTORY OF PRESENT ILLNESS: This is a 64-year-old gentleman who returns to the pain clinic today for refill of his opioid medications. He states that his pain score is a 6-7 on a 10, most significantly in his neck and right arm, though he does have low back issues that radiate into his right leg and foot. He states it is a spasm, sharp pain that is also dull at times with numbness in his arm, rating his pain score at 6-7/10 today. He reports that walking, standing prolonged period of time and weather changes do increase his pain. He feels that the medication as well as resting are beneficial. Today, he would like refills of his medications as well as a refill of a lidocaine ointment that we have given him in the past. The patient reports he fell again since we have last seen him. His doctor reports that it has to do with his hemochromatosis. He reports he is being more careful as he stands and then walks. He does not get up and go as quickly as he had in the past. He finds this has been beneficial. He does report that he did not require any blood to be removed at his appointment last week for his hemochromatosis. In the last month, his nurse had told him to try half a shot of whiskey every morning to see if that helped, so that is what the patient has been doing. He states he has not been taking his opioid medications with this, half a shot of whiskey that he puts in his coffee, but has found that he did not need to have blood drawn, so he is hopeful that this is helpful for him. ALLERGIES: CHOCOLATE, DARVOCET, PENICILLIN, MORPHINE, MILK AND GABAPENTIN. CURRENT LIST OF MEDICATIONS: Oxycodone 5/325 p.r.n., methadone 10 mg b.i.d., Eliquis, baclofen, trazodone, propranolol, Lexapro, Toprol, aspirin, testosterone and multivitamin. PQRS: 1. He has osteoarthritic changes in his hands, neck and back. Denies rheumatoid arthritis. [address] [address] PAIN MANAGEMENT CONSULTATION Name: ATTILAKIMBERLYCARINA Room #: REG CLI Myah.Zofia#: [id number] Admission: 06/20/20 Attend Phys: Ann Nazario Discharge: Date of : 59 Report #: [id number] 2. Height is 6 feet 2 inches, weight is 164, BMI is 21. 3. Vital signs 130/84, pulse is 63, respirations 18, oxygen sat is 99%. 4. Pain score is 6-7. 5. Fall risk. Denies dizziness, does not need help walking or standing, has fallen in the last 3 months. 6. The patient is on Eliquis as well as medicine for hypertension. His opioid therapy is greater than 6 weeks; therefore, an opioid signed contract is on the chart. Risk assessment is low. Functional assessment is 56/70. 7. Recreational drug use, he denies. He is a current smoker and does drink half a shot of whiskey daily. According to the prescription monitoring system, the patient is filling appropriately for his medications. His morphine milliequivalent is 75 MME. We will check a random drug screen on this patient today. PHYSICAL EXAMINATION: GENERAL: This is alert and orientated, well-developed, well-nourished gentleman who appears his stated age with no signs of overmedication, placing his current pain score at 6-7/10 today. HEENT: Normocephalic, atraumatic. Extraocular eye muscles are intact. He is wearing a mask. MUSCULOSKELETAL: He has muscle tension in his cervical area and tightness in his trapezius with numbness in his right hand and a slight tremor. He walks with a shuffling antalgic gait. He has pain in his lower back that radiates down his right leg. His lower extremity strength judged to be 5/5 with all major muscle groups. He does have limited range of motion in all planes of his cervical spine due to previous surgeries. IMPRESSION: 1. Chronic intractable pain with cervicalgia and cervical radiculopathy. 2. Ongoing movement disorder. 3. Osteoarthritis. 4. Lumbar radiculopathy, post-laminectomy syndrome. 5. Hemochromatosis requiring phlebotomy. 6. Management of high risk medications under terms of written opioid agreement. We reviewed the fact that opiate medications are being used to provide analgesia adequate to support activities of daily living, not attempting to achieve a specific pain score on the 0-10 Visual Analog Scale. The current opiate medications are providing sufficient analgesia to allow the patient to participate in activities of daily living. The patient is not exhibiting any aberrant behavior suggestive of drug diversion. The patient is not having any adverse reactions to medications. The patient is not suffering from daytime somnolence or mental acuity changes. The patient is managing opiate-induced constipation with appropriate qdad-btr-glbiigl agents and dietary considerations. The patient was counseled on concern for caution with operating [facility] [address] [place] [address] PAIN MANAGEMENT CONSULTATION Name: MANDYCARINA Room #: REG SAMIR Corrales#: [id number] Admission: 06/20/20 Attend Phys: Ann Nazario Discharge: Date of : 59 Report #: [id number] a motor vehicle while using opiate medications. PLAN: 1. We discussed treatment options with the patient today. The patient has started taking half a shot of whiskey in his coffee every morning to help with his hemochromatosis. I encouraged him not to take his opioid medication at the same time. The patient has been aware of that and has not been taking his meds with alcohol. He reported this to us today because he knows that it will show in his random drug screen that we are obtaining today. I also encouraged him to limit alcohol intake later in the day. 2. He finds the medication beneficial, so we will have Dr. Michael Zamorano send his Percocet 5/325, #60 for today and 4-week supply as well as methadone 10 mg, #60 for 2 months as well. 3. I will send baclofen 10 mg, #60 to his pharmacy as well today. 4. The patient is seen today in collaboration with Dr. Michael Zamorano. The patient will return in 2 months for medications. <ELECTRONICALLY SIGNED> By: Ann Nazario 06/21/20 0803 [id number] Ann Nazario /nt
== END ==
LOC: PAIN 06:54
PROVIDERS: ATTEND Clinical Nurse Specialist Adult Health
DX: M54.12 Radiculopathy, cervical region (principal); M96.1 Postlaminectomy syndrome, not elsewhere classified; F11.20 Opioid dependence, uncomplicated; M19.90 Unspecified osteoarthritis, unspecified site; M54.16 Radiculopathy, lumbar region; E83.118 Other hemochromatosis; Z88.8 Allergy status to other drugs, medicaments and biological substances; Z79.899 Other long term (current) drug therapy

== ENCOUNTER → 2020-08-22 | Outpatient (CLI) | payer OTHER ==
[~2020-08-22] VITALS: Ht 188 cm; Wt 75.9 kg
[2020-08-22 09:45] VITALS: BP 150/84
--- NOTE | 2020-08-23 13:00 | HPC ---
[facility] [address] [place] [address] PAIN MANAGEMENT CONSULTATION Name: CARINA GALVAN Room #: REG [facility] Justin.#: [id number] Admission: 08/22/20 Attend Phys: Ann Nazario Discharge: Date of : 59 Report #: [id number] THIS REPORT FOR: cc: Tushar Laughlin David J. DO Hocker, Amanda CNS ~ CC: Ann Zamorano MD DATE OF SERVICE: 08/22/2020 CHIEF COMPLAINT: Severe cervicalgia with radiculopathy, status post anterior and posterior fusion. HISTORY OF PRESENT ILLNESS: This is a 64-year-old gentleman who is here today with his to discuss his ongoing pain issues as well as various other health issues the patient is experiencing. The patient today reports a pain score of 9/10, most significantly located in his neck and right side of his body, stating his pain is a 9/10. It is a dull, aching pain with numbness in his extremities as well as occasional sharp pain. He also is reporting occasional frontal migraine headaches, which he had has a history of. The patient states that his pain is worse with any movement. He believes that the medicine is beneficial, though his pain continues to increase. He denies problems with constipation. The patient reports that he is going to see an oncologist on Saturday and have a CAT scan of his abdomen. According to his 's report his shop mechanic has referred him to this oncologist. He is unaware of why he is seeing this doctor. The patient states he has not had any therapeutic phlebotomies for 2 months due to being more stable with his hemochromatosis. The patient reports he has not seen a neurologist for his movement disorder. We referred him to Dr. Rojas, that appointment was canceled. They are unsure of the circumstances. The patient continues to have times that he is falling. It is not upon rising from a chair. It is after he has been walking for a while and unsure what is causing, as his blood pressure remained stable throughout this. ALLERGIES: DARVOCET, PENICILLIN, MORPHINE AND GABAPENTIN. MEDICATIONS: Baclofen 10 mg p.r.n., oxycodone 5/325 b.i.d., methadone 10 mg b.i.d., Eliquis, trazodone, propranolol, Lexapro, Toprol, aspirin, Depo-Testosterone, multivitamin. PQRS: 1. He has a history of osteoarthritis in his back, neck and hands. [place] [address] PAIN MANAGEMENT CONSULTATION Name: CARINA GALVAN Room #: REG [facility]..#: [id number] Admission: 08/22/20 Attend Phys: Ann Nazario Discharge: Date of : 59 Report #: [id number] 2. Height is 6 feet 2 inches, weight is 167, BMI is 21. Vital signs 150/87, pulse is 63, respirations 18, oxygen sat is 97%. 3. Pain score is 9/10. 4. Denies dizziness, does not use any assistance with walking, has fallen several times in the last 3 months. 5. The patient is on Eliquis as well as medicines for hypertension. 6. Opioid therapy is greater than 6 weeks; therefore, an opioid signed contract is on the chart. Risk assessment is low. Functional assessment is 56/70. 7. Recreational drug use, he denies. He currently smokes a pack of cigarettes a day and drinks a shot of whiskey every morning and 4-5 beers daily. 8. According to the prescription monitoring system, the patient is filling appropriately for his medications. He is due to fill those today. His morphine mEq per day is 75 MME. There is a drug screen on the chart that is appropriate for his medications and is also positive for nicotine. PHYSICAL EXAMINATION: GENERAL: This is alert and orientated 64-year-old gentleman who has a noticeable tremor in his head, neck and hand. He is showing no signs of overmedication. HEENT: Normocephalic, atraumatic. Extraocular eye muscles are intact. He is wearing a mask. MUSCULOSKELETAL: He has multiple scars in his neck with a small cystic nodule noted on the lateral aspect of his scar. He has limited motion of his neck and his lumbar spine in the flexion and extension planes. He has a stiff and antalgic spastic gait. His right leg is weak. Examination of his upper extremity shows weakness in his right arm. Deep tendon reflexes in his lower extremities are 2+ in his ankles. There is no evidence of hyperreflexia. He has diminished sensation in his right upper extremity and multiple dermatomes. IMPRESSION: 1. Chronic intractable pain with cervicalgia and radiculopathy. 2. Ongoing movement disorder and tremors, remaining undiagnosed. 3. Osteoarthritis. 4. Hemochromatosis requiring phlebotomy. 5. Lumbar radiculopathy, post-laminectomy syndrome. 6. Management of high risk medications under terms of written opioid agreement. We reviewed the fact that opiate medications are being used to provide analgesia adequate to support activities of daily living, not attempting to achieve a specific pain score on the 0-10 Visual Analog Scale. The current opiate medications are providing sufficient analgesia to allow the patient to participate in activities of daily living. The patient is not exhibiting any aberrant behavior suggestive of drug diversion. The patient is not having any adverse reactions to medications. The patient is not suffering from daytime somnolence or mental acuity changes. The patient is managing opiate-induced constipation with appropriate xexy-wbg-nkougqd agents and dietary [facility] [address] [place] [address] PAIN MANAGEMENT CONSULTATION Name: MANDYCARINA Gordon [facility] #: [facility] [id number] Admission: 08/22/20 Attend Phys: Ann Nazario Discharge: Date of : 59 Report #: [id number] considerations. The patient was counseled on concern for caution with operating a motor vehicle while using opiate medications. A physical exam was performed and the patient's functional status was evaluated. All patients with back pain were advised against the bed rest greater than 4 days and were advised to return to normal activities. Pain score assessment was noted and the treatment plan was reviewed with the patient. All current medications, both prescribed and OTC were reviewed and reconciled on the electronic medical record. Tobacco screening was accomplished and smoking cessation was advised when indicated. BMI was noted and diet/exercise modification was recommended for all patients following outside normal parameters. I reviewed with the patient today their responsibilities to safeguard prescription medications, reviewed their responsibility to utilize medications only as prescribed by the physician. They are to seek and receive pain medications only from 1 physician group ([facility]). They are to use 1 pharmacy and keep the clinic informed if they change pharmacies. Their responsibilities include making followup visits in a timely fashion and to avoid abrupt discontinuation of medication usage. Their responsibilities further include bringing their medications (bottles from the pharmacy with residual pills) to the visit for possible confirmation of pill counts and the patient understands it is their responsibility to submit to random drug screens to ensure both that the medications prescribed are present, and that no other controlled substances are present. All prescriptions provided today were generated electronically. PLAN: 1. We discussed treatment options with the patient today. The patient does report going to see an oncologist that his shop mechanic referred him to. He is unsure of the reasoning. I encouraged the patient and his to have them send us a report. 2. The patient reports not seen a movement disorder specialist that we referred him to Dr. Rojas. We will provided him with the name and number to follow up with them. I believe may be beneficial to have a CT of his head. If they do not order that test, we will order it for him. The patient encouraged to call there today. 3. The patient continues to have problems with falling, the reports no change in blood pressure. I encouraged him to use assistive device such as a cane when he is ambulating. 4. Dr. Zamorano did examine the patient as well and agreed with the above. 5. We will continue him on his current dose of methadone 10 mg twice a day and baclofen 5 mg/325 b.i.d., #60. These will be sent electronically by Dr. Zamorano for today and 4-week supply and I will send his baclofen 10 mg, #60 with one additional refill that he does use on an as needed basis. 6. The patient will return in 2 months or as needed. The patient encouraged [address] [address] PAIN MANAGEMENT CONSULTATION Name: MADNYCARINA Heidi Room #: REG CLDarnell Corrales#: [id number] Admission: 08/22/20 Attend Phys: Ann Nazario Discharge: Date of : 59 Report #: [id number] to keep us apprised of his physician's appointments and findings. The patient is seen today in collaboration with Dr. Michael Zamorano. <ELECTRONICALLY SIGNED> By: Ann Nazario 08/23/20 1300 [id number] Ann Nazario /nt
== END ==
LOC: PAIN 06:52
PROVIDERS: ATTEND Clinical Nurse Specialist Adult Health
DX: M54.12 Radiculopathy, cervical region (principal); M43.22 Fusion of spine, cervical region; M54.16 Radiculopathy, lumbar region; M96.1 Postlaminectomy syndrome, not elsewhere classified; F11.20 Opioid dependence, uncomplicated; E83.110 Hereditary hemochromatosis; R25.1 Tremor, unspecified; Z88.8 Allergy status to other drugs, medicaments and biological substances; Z79.899 Other long term (current) drug therapy

== ENCOUNTER → 2020-10-20 | Outpatient (CLI) | payer OTHER ==
[~2020-10-20] VITALS: Ht 188 cm; Wt 77.5 kg
[~2020-10-20] MED LIST changes: +VOLTAREN GEL 1100 G2 TOP
[2020-10-20 10:00] VITALS: BP 103/69
--- NOTE | 2020-10-20 10:35 | NUR ---
Pain Clinic Assessment: 1. History of Osteoarthritis: BACK HANDS NECK History of Rheumatoid Arthritis: Not Applicable 2. Height: 6 ft. 2 in. 188.0 cm. Weight: 170.8 lb. oz. 77.474 kg. Patient's BMI: 21.9 3. Vital Signs: BP: 103/69 Pulse: 63 Resp: 14 Temp: 02 Sat: 100 ECG Mon: 4. Pain Intensity: 10 5. Fall Risk: Dizziness: N Needs help standing or walking: N Fallen in the last 3 months: Y Fall risk comments: FALLEN A COUPLE TIMES 6. Patient on Blood Thinner: DYANA 7. History of Hypertension: Y 8. Opioid Therapy greater than 6 weeks: Y Opiate Contract Signed: 05/21/16 9. Risk Assessment Tool Provided: LOW RISK -1 10. Functional Assessment Tool: 56/ 11. Recreational Drug Use: Never Drug Type: Tobacco Use: Current Every Day Smoker Tobacco Type: Cigarettes Amount or Packs/day: 1 PPD How Many Years: 45 Alcohol Use: Yes Frequency: Daily Quant: 2 BEERS DAILY PER PT
--- NOTE | 2020-10-21 07:32 | HPC ---
[facility] [address] [address] PAIN MANAGEMENT CONSULTATION Name: CARINA GALVAN [facility] #: [facility] [id number] Admission: 10/20/20 Attend Phys: Ann Nazario Discharge: Date of : 59 Report #: [id number] THIS REPORT FOR: cc: Tushar Laughlin David J. DO Hocker,Ann ANDUJAR ~ DATE OF SERVICE: 10/20/2020 CHIEF COMPLAINT: Severe cervicalgia with radiculopathy, status post anterior and posterior fusion. HISTORY OF PRESENT ILLNESS: This is a 64-year-old gentleman who returns to the pain clinic today for refills of his medication. He is rating his pain quite high today at 10/10, though per his report some days, his pain is an average of 5-6. His pain is most significant in his neck and right arm, though he does have low back pain that radiates down his right leg to his foot. He has significant numbness as well as sharp, aching discomfort that is worse with weather changes, turning his head and prolonged walking and standing. He feels that the medication is beneficial at times, though he does admit to drinking several beers several times a day to numb "his pain." He does use heat on his neck and back as well. The patient is reporting he did see the oncologist and had a CAT scan of his abdomen. We have no reports from his physicians, he reports they found nothing. He continues to have tremors and movement issues, though he has not seen a movement specialist that we have referred him to several months ago. Unfortunately, his is not present with him today to help with some of this discussion the patient at times has some memory issues that he admits to that has been ongoing for quite some time. ALLERGIES: DARVOCET, PENICILLIN, MORPHINE, GABAPENTIN. CURRENT LIST OF MEDICATIONS: Oxycodone 5/325 p.r.n., baclofen 10 mg b.i.d., methadone 10 mg b.i.d., trazodone, propranolol, Lexapro, metoprolol, aspirin, testosterone and multivitamin. PQRS: 1. He has osteoarthritis in his spine, hands, neck and spinal stenosis. He denies rheumatoid arthritis. 2. Height is 6 feet 2 inches. Weight is 170, BMI is 21. 3. Vital signs 103/69, pulse is 63, respirations 14, oxygen sat is 100%. 4. Pain score average is 5-6, but can be as high as 10/10. 5. Denies dizziness, does not need help walking or standing, has fallen recently, but not required hospitalization or a doctor visit. 6. The patient reports stopping his Eliquis. He is also on hypertension medicines. [facility] [address] [place] [address] PAIN MANAGEMENT CONSULTATION Name: CARINA GALVAN Room #: REG CLDarnell Corrales#: [id number] Admission: 10/20/20 Attend Phys: Ann Nazario Discharge: Date of : 59 Report #: [id number] 7. Opioid therapy is greater than 6 weeks; therefore, an opioid signed contract is on the chart. Risk assessment is low. Functional assessment is 56/70. 8. Recreational drug use, he denies. He is a current smoker of at least a pack of cigarettes a day and drinks 2-4 beers per day per his report. According to the prescription monitoring system, the patient is filling appropriately in a timely fashion. He is due to fill his medications today. His morphine mEq is 75. We had checked a random drug screen last year and that was appropriate for all his medications. PHYSICAL EXAMINATION: GENERAL: This is alert and orientated, depressed 64-year-old gentleman who shows no signs of overmedication. He does have a noticeable tremor in his hands and neck. He is answering my questions appropriately. HEENT: Normocephalic, atraumatic. Extraocular eye muscles are intact. He is wearing a mask. MUSCULOSKELETAL: He has limited motion in his neck and lumbar spine due to previous surgeries, especially in the flexion and extension planes. He walks in a stiff spastic antalgic gait. His upper extremity strength is slightly weakened especially greater on the right than the left. Lower extremity strength equal and symmetrical. He has tenderness in his lumbar spine that radiates down his right leg. IMPRESSION: 1. Chronic intractable pain with cervicalgia and radiculopathy. 2. Ongoing movement disorders and tremors. 3. Osteoarthritis. 4. Hemochromatosis. 5. Lumbar radiculopathy, post-laminectomy syndrome. 6. Management of high risk medications under terms of written opioid agreement. PLAN: 1. We discussed treatment options with the patient today. The patient reports that he did see an oncologist and his radar engineering teacher with negative findings and no further testing per his report. He has also not needed any therapeutic phlebotomy for his hemochromatosis. It seems to be stable presently per his report and he has not seen a movement specialist that we have referred him to. He is unsure when an appointment is scheduled. 2. I encouraged the patient to follow up with the movement specialist, have his called, they have been given the number several times. She unfortunately is not present at the appointment today. 3. The patient admits to drinking 2-4 beers a day depending on his pain. I encouraged him to try to decrease this. We do give him opioid medications to help with his pain. The patient verbalizes understanding. He does this on his more severe days. We also discussed no driving when he is drinking. [facility] [address] [place] [address] PAIN MANAGEMENT CONSULTATION Name: CARINA GALVAN Room #: REG [facility] Savanna#: [id number] Admission: 10/20/20 Attend Phys: Ann Nazario Discharge: Date of : 59 Report #: [id number] 4. We will continue him on his methadone and oxycodone. These have been reduced over the years. Dr. Michael Zamorano will send this electronically for 2 months. 5. We discussed his ongoing arthritic issues. He is unable to take oral anti-inflammatory medications due to his colitis and blood thinner. We will trial Voltaren gel, instructing him to use this in multiple joints and see if it is beneficial. I have also provided him with some hand exercises as at times today he sits with his hands tightly gripped, other times using his hands without any difficulty. Encouraging him to use this 2-4 times a day and see if it is beneficial. 6. The patient will return in 2 months or as needed and I encouraged him to have his present for his meetings. The patient is seen today in collaboration with Dr. Zamorano. <ELECTRONICALLY SIGNED> By: Ann Nazario 10/21/20 0732 [id number] 1141 Ann liu
== END ==
LOC: PAIN 06:50
PROVIDERS: ATTEND Clinical Nurse Specialist Adult Health
DX: M54.12 Radiculopathy, cervical region (principal); R25.1 Tremor, unspecified; E83.119 Hemochromatosis, unspecified; M54.16 Radiculopathy, lumbar region; M96.1 Postlaminectomy syndrome, not elsewhere classified; F11.20 Opioid dependence, uncomplicated; Z88.8 Allergy status to other drugs, medicaments and biological substances; Z79.899 Other long term (current) drug therapy

== ENCOUNTER → 2020-12-15 | Outpatient (CLI) | payer OTHER ==
[~2020-12-15] VITALS: Ht 188 cm; Wt 73.6 kg
[~2020-12-15] MED LIST changes: +ENDOCET 10-3251 EACH PO; +ENDOCET 5-3251 EACH PO
[2020-12-15 10:26] VITALS: BP 152/85
== END ==
LOC: PAIN 06:42
PROVIDERS: ATTEND Anesthesiology Pain Medicine
DX: G89.4 Chronic pain syndrome (principal); M43.22 Fusion of spine, cervical region; M54.12 Radiculopathy, cervical region; M19.90 Unspecified osteoarthritis, unspecified site; E83.119 Hemochromatosis, unspecified; M96.1 Postlaminectomy syndrome, not elsewhere classified; F11.20 Opioid dependence, uncomplicated; F17.200 Nicotine dependence, unspecified, uncomplicated; Z88.8 Allergy status to other drugs, medicaments and biological substances; Z79.899 Other long term (current) drug therapy

== ENCOUNTER → 2021-02-16 | Outpatient (CLI) | payer OTHER ==
[~2021-02-16] VITALS: Ht 188 cm; Wt 73.9 kg
[2021-02-16 10:17] VITALS: BP 164/101
--- NOTE | 2021-02-16 10:22 | NUR ---
Pain Clinic Assessment: 1. History of Osteoarthritis: BACK HANDS NECK History of Rheumatoid Arthritis: Not Applicable 2. Height: 6 ft. 2 in. 188.0 cm. Weight: 163.0 lb. oz. 73.936 kg. Patient's BMI: 20.9 3. Vital Signs: BP: 164/101 Pulse: 71 Resp: 14 Temp: 02 Sat: 96 ECG Mon: 4. Pain Intensity: 8-9 5. Fall Risk: Dizziness: N Needs help standing or walking: N Fallen in the last 3 months: N Fall risk comments: FELL 3 DAYS AGO 12/12/20 6. Patient on Blood Thinner: None 7. History of Hypertension: Y 8. Opioid Therapy greater than 6 weeks: Y Opiate Contract Signed: 05/21/16 9. Risk Assessment Tool Provided: LOW RISK -1 10. Functional Assessment Tool: 11. Recreational Drug Use: Never Drug Type: Tobacco Use: Current Every Day Smoker Tobacco Type: Cigarettes Amount or Packs/day: .75 How Many Years: Alcohol Use: Yes Frequency: Quant:
== END ==
LOC: PAIN 06:53
PROVIDERS: ATTEND Clinical Nurse Specialist Adult Health
DX: M54.12 Radiculopathy, cervical region (principal); G89.4 Chronic pain syndrome; M54.16 Radiculopathy, lumbar region; M19.90 Unspecified osteoarthritis, unspecified site; E83.119 Hemochromatosis, unspecified; M96.1 Postlaminectomy syndrome, not elsewhere classified; F11.20 Opioid dependence, uncomplicated; Z88.8 Allergy status to other drugs, medicaments and biological substances; Z79.899 Other long term (current) drug therapy

== ENCOUNTER → 2021-04-13 | Outpatient (CLI) | payer OTHER ==
[~2021-04-13] VITALS: Ht 188 cm; Wt 75.8 kg
[~2021-04-13] MED LIST changes: +GABAPENTIN600 M1 PO
[2021-04-13 13:55] VITALS: BP 145/84
--- NOTE | 2021-04-13 14:10 | NUR ---
Pain Clinic Assessment: 1. History of Osteoarthritis: BACK HANDS NECK History of Rheumatoid Arthritis: Not Applicable 2. Height: 6 ft. 2 in. 188.0 cm. Weight: 167.2 lb. oz. 75.841 kg. Patient's BMI: 21.5 3. Vital Signs: BP: 145/84 Pulse: 60 Resp: 16 Temp: 02 Sat: 100 ECG Mon: 4. Pain Intensity: 9 5. Fall Risk: Dizziness: N Needs help standing or walking: Y Fallen in the last 3 months: Y Fall risk comments: FELL 3 DAYS AGO 12/12/20 6. Patient on Blood Thinner: None 7. History of Hypertension: Y 8. Opioid Therapy greater than 6 weeks: Y Opiate Contract Signed: 05/21/16 9. Risk Assessment Tool Provided: LOW RISK -1 10. Functional Assessment Tool: 56/ 11. Recreational Drug Use: Never Drug Type: Tobacco Use: Current Every Day Smoker Tobacco Type: Cigarettes Amount or Packs/day: 5 CIGGS/DAY How Many Years: Alcohol Use: Yes Frequency: Daily Quant: 1
== END ==
LOC: PAIN 09:04
PROVIDERS: ATTEND Anesthesiology Pain Medicine
DX: G89.29 Other chronic pain (principal); M54.2 Cervicalgia; I10 Essential (primary) hypertension; G95.89 Other specified diseases of spinal cord; M19.90 Unspecified osteoarthritis, unspecified site; E83.119 Hemochromatosis, unspecified; F10.10 Alcohol abuse, uncomplicated; Z88.0 Allergy status to penicillin; Z88.5 Allergy status to narcotic agent; Z98.890 Other specified postprocedural states; Z79.891 Long term (current) use of opiate analgesic; Z79.899 Other long term (current) drug therapy; Z86.59 Personal history of other mental and behavioral disorders

== ENCOUNTER → 2021-04-19 | Outpatient (CLI) | payer OTHER ==
[~2021-04-19] VITALS: Ht 190.5 cm; Wt 74.5 kg
[~2021-04-19] MED LIST changes: +AVAPRO 150 MG150 M1 PO; +FLONASE 0.05%50 MCG NARES; +METHADONE10 MG/1 M2 PO; +PERCOCET 5-3251 EACH PO
[2021-04-19 14:05] VITALS: BP 167/83
[2021-04-19 14:29] LABS: HEMATOCRIT 39.7 % (42.0-52.0); HEMOGLOBIN 13.5 gm/dL (14.0-18.0); MCH 34.9 pg (26.0-34.0); MCV 102.6 fL (80.0-100.0); RBC 3.87 mil/uL (4.50-6.00); RDW 13.5 % (10.5-14.5); WBC 5.4 thou/uL (4.0-11.0)
--- NOTE | 2021-04-19 16:43 | NUR ---
PT RETURNED TO ROOM FROM [facility]. IV TO LEFT AC INFILTRATED, SWOLLEN AND RED. NS STOPPED AND VANCOMYCIN STOPPED. IV REMOVED AND WARM PACKS APPLIED TO ARM. DR VENEGAS AWARE (NO FURTHER ANTIBIOTICS NEEDED). I ALSO CALLED PHARMACY AND SPOKE WITH PHARMACIST TO SEE IF THERE WAS ANYTHING ELSE I SHOULD BE DOING. PHARMACIST STATES NO FURTHER TREATMENT NEEDED OTHER THAN WARM PACKS. IS AWARE AND SHE WILL CONTINUE WITH WARM PACKS AT HOME AND KEEP AN EYE ON IT. NEW WARM PACK APPLIED.
--- NOTE | 2021-04-19 16:49 | NUR ---
BANDAID TO [facility] INSERTION SITE WITH SMALL AMOUNT OF DRIED BLOOD ON IT. PT RESTING IN A DEEP SLEEP. WILL RESPOND TO LOUD VOICES AND LIGHT STERNAL RUB.
--- NOTE | 2021-04-19 16:58 | NUR ---
PT SITTING UP AND DRINKING COFFEE.
== END | disposition home or self-care (01) ==
LOC: CATH 11:42 → SJCVC 11:42
PROVIDERS: ATTEND Nuclear Medicine Nuclear Cardiology
DX: M80.08XA Age-related osteoporosis with current pathological fracture, vertebra(e), initial encounter for fracture (principal); M54.9 Dorsalgia, unspecified; I10 Essential (primary) hypertension; I48.91 Unspecified atrial fibrillation; G89.29 Other chronic pain; F17.210 Nicotine dependence, cigarettes, uncomplicated; Z98.890 Other specified postprocedural states; Z79.899 Other long term (current) drug therapy; Z79.01 Long term (current) use of anticoagulants; Z86.711 Personal history of pulmonary embolism; Z87.442 Personal history of urinary calculi; Z82.49 Family history of ischemic heart disease and other diseases of the circulatory system

== ENCOUNTER → 2021-06-15 | Outpatient (CLI) | payer OTHER ==
[~2021-06-15] VITALS: Ht 188 cm; Wt 78.4 kg
[~2021-06-15] MED LIST changes: +ENDOCET 7.5-321 EACH PO
[2021-06-15 10:33] VITALS: BP 152/76
--- NOTE | 2021-06-15 10:47 | NUR ---
Pain Clinic Assessment: 1. History of Osteoarthritis: BACK HANDS NECK History of Rheumatoid Arthritis: Not Applicable 2. Height: 6 ft. 2 in. 188.0 cm. Weight: 172.8 lb. oz. 78.382 kg. Patient's BMI: 22.2 3. Vital Signs: BP: 152/76 Pulse: 55 Resp: 16 Temp: 02 Sat: 100 ECG Mon: 4. Pain Intensity: 9 5. Fall Risk: Dizziness: N Needs help standing or walking: Y Fallen in the last 3 months: Y Fall risk comments: FELL 3 DAYS AGO 12/12/20 6. Patient on Blood Thinner: None 7. History of Hypertension: Y 8. Opioid Therapy greater than 6 weeks: Y Opiate Contract Signed: 05/21/16 9. Risk Assessment Tool Provided: LOW RISK -1 10. Functional Assessment Tool: 56/ 11. Recreational Drug Use: Never Drug Type: Tobacco Use: Current Every Day Smoker Tobacco Type: Cigarettes Amount or Packs/day: 1 PACK/DAY How Many Years: 40 Alcohol Use: Yes Frequency: Daily Quant: 1
== END ==
LOC: PAIN 09:54
PROVIDERS: ATTEND Clinical Nurse Specialist Adult Health
DX: M48.54XD Collapsed vertebra, not elsewhere classified, thoracic region, subsequent encounter for fracture with routine healing (principal); M54.2 Cervicalgia; G89.29 Other chronic pain; M19.90 Unspecified osteoarthritis, unspecified site; F32.9 Major depressive disorder, single episode, unspecified; F41.9 Anxiety disorder, unspecified; Z79.899 Other long term (current) drug therapy; Z79.891 Long term (current) use of opiate analgesic

== ENCOUNTER → 2021-08-10 | Outpatient (CLI) | payer OTHER ==
[~2021-08-10] VITALS: Ht 188 cm; Wt 76.5 kg
[2021-08-10 11:02] VITALS: BP 160/93
--- NOTE | 2021-08-10 11:16 | NUR ---
Pain Clinic Assessment: 1. History of Osteoarthritis: BACK HANDS NECK History of Rheumatoid Arthritis: Not Applicable 2. Height: 6 ft. 2 in. 188.0 cm. Weight: 168.6 lb. oz. 76.476 kg. Patient's BMI: 21.6 3. Vital Signs: BP: 160/93 Pulse: 61 Resp: 14 Temp: 02 Sat: 97 ECG Mon: 4. Pain Intensity: 9 5. Fall Risk: Dizziness: N Needs help standing or walking: N Fallen in the last 3 months: N Fall risk comments: FELL 3 DAYS AGO 12/12/20 6. Patient on Blood Thinner: None 7. History of Hypertension: Y 8. Opioid Therapy greater than 6 weeks: Y Opiate Contract Signed: 05/21/16 9. Risk Assessment Tool Provided: LOW RISK -1 10. Functional Assessment Tool: 56/ 11. Recreational Drug Use: Never Drug Type: Tobacco Use: Current Every Day Smoker Tobacco Type: Cigarettes Amount or Packs/day: 3/4 How Many Years: Alcohol Use: Yes Frequency: Quant:
== END ==
LOC: PAIN 08:47
PROVIDERS: ATTEND Clinical Nurse Specialist Adult Health
DX: G89.29 Other chronic pain (principal); M96.1 Postlaminectomy syndrome, not elsewhere classified; M19.90 Unspecified osteoarthritis, unspecified site; E83.118 Other hemochromatosis; F41.8 Other specified anxiety disorders; Z88.0 Allergy status to penicillin; Z88.8 Allergy status to other drugs, medicaments and biological substances; Z79.899 Other long term (current) drug therapy

== ENCOUNTER → 2021-10-05 | Outpatient (CLI) | payer OTHER ==
[~2021-10-05] VITALS: Ht 188 cm; Wt 77.7 kg
[~2021-10-05] MED LIST changes: +NEURONTIN300 MG PO
[2021-10-05 08:33] VITALS: BP 134/79
--- NOTE | 2021-10-05 08:48 | NUR ---
Pain Clinic Assessment: 1. History of Osteoarthritis: BACK HANDS NECK History of Rheumatoid Arthritis: Not Applicable 2. Height: 6 ft. 2 in. 188.0 cm. Weight: 171.2 lb. oz. 77.656 kg. Patient's BMI: 22.0 3. Vital Signs: BP: 134/79 Pulse: 66 Resp: 20 Temp: 02 Sat: 96 ECG Mon: 4. Pain Intensity: 8 5. Fall Risk: Dizziness: Y Needs help standing or walking: N Fallen in the last 3 months: N Fall risk comments: FELL 3 DAYS AGO 12/12/20 6. Patient on Blood Thinner: None 7. History of Hypertension: Y 8. Opioid Therapy greater than 6 weeks: Y Opiate Contract Signed: 05/21/16 9. Risk Assessment Tool Provided: LOW RISK -1 10. Functional Assessment Tool: 56/ 11. Recreational Drug Use: Never Drug Type: Tobacco Use: Current Every Day Smoker Tobacco Type: Cigarettes Amount or Packs/day: 1 How Many Years: Alcohol Use: Yes Frequency: Special Occasions Quant: 12
== END ==
LOC: PAIN 06:47
PROVIDERS: ATTEND Clinical Nurse Specialist Adult Health
DX: G89.29 Other chronic pain (principal); M54.2 Cervicalgia; M96.1 Postlaminectomy syndrome, not elsewhere classified; M19.90 Unspecified osteoarthritis, unspecified site; F41.8 Other specified anxiety disorders; F17.200 Nicotine dependence, unspecified, uncomplicated; Z88.0 Allergy status to penicillin; Z88.8 Allergy status to other drugs, medicaments and biological substances; Z79.899 Other long term (current) drug therapy